=== PATIENT | female | born 1945 | race Caucasian/White ===

== ENCOUNTER 2017-01-10 09:34 | Emergency (ER) | payer MEDICARE, MEDICAID ==
[~2017-01-10] VITALS: Ht 167.6 cm; Wt 86.0 kg
[~2017-01-10 09:34] MED LIST: AZIT250T74 PO; PRED20 PO; WELL200T PO
[2017-01-10 09:41] VITALS: BP 145/87; PULSE 90; RESP 18; TEMP 97.9; O2SAT 94
[2017-01-10] MEDS ORDERED: NEBUMIS6 (09:53)
[2017-01-10] MEDS ORDERED: BRIO (09:53)
--- NOTE | 2017-01-10 10:08 | PD ---
HPI Chief Complaint: Edema Time Seen by Provider: 09:50 Travel History International Travel<30 days: No Contact w/Intl Traveler<30days: No Traveled to known affect area: No History of Present Illness HPI This patient complains of swelling in her feet and legs. Duration 3 weeks. Severity is moderate. She also complains of one week of aching in her left arm between shoulder and elbow. No injury. No fever. She has chronic severe COPD and has oxygen at home and still smokes. She denies history of cardiac disease. Left arm pain is reproduced and exacerbated when she raises her arm overhead. It's located primarily in the left shoulder. No alleviating factors. PFSH Past Medical History Depression: Yes Cancer: No Cardiovascular Problems: No COPD: Yes Cerebrovascular Accident: No Diminished Hearing: No Endocrine: No Genitourinary: No Immune Disorder: No Musculoskeletal: Yes Psychiatric: Yes Reproductive: No Menopausal: Yes Past Surgical History Tonsillectomy: Yes Social History Alcohol Use: No Tobacco Use: Yes (1/2-1PPD) Substance Use: No Allergies-Medications (Allergen,Severity, Reaction): Coded Allergies: penicillin G (Unverified Allergy, Mild, 01/10/17) Reported Meds & Prescriptions Reported Meds & Active Scripts Active Reported [Brio] [Nebulizer] Review of Systems General / Constitutional: No: Fever Eyes: No: Visual changes HENT: No: Headaches Cardiovascular: Positive: Edema, No: Chest Pain or Discomfort Respiratory: No: Shortness of Breath Gastrointestinal: No: Abdominal Pain Genitourinary: No: Dysuria Musculoskeletal: Positive: Arthralgias, Edema, Pain Skin: No Rash Neurologic: No: Weakness Psychiatric: No: Depression Endocrine: No: Polydipsia Hematologic/Lymphatic: No: Easy Bruising Physical Exam Narrative GENERAL: Well-nourished, well-developed patient in no apparent distress. SKIN: Focused skin assessment reveals no rash and nodules. Skin is Warm and dry. HEAD: Atraumatic. Normocephalic. EYES: Pupils equal and round. No scleral icterus. No injection or drainage. ENT: No nasal bleeding or discharge. Mucous membranes pink and moist. NECK: Trachea midline. No JVD. CARDIOVASCULAR: Regular rate and rhythm. No murmur appreciated. RESPIRATORY: No accessory muscle use. Faint expiratory wheeze. Breath sounds equal bilaterally. No crackles GASTROINTESTINAL: Abdomen soft, non-tender, nondistended. Hepatic and splenic margins not palpable. MUSCULOSKELETAL: No obvious deformities. No clubbing. No cyanosis. Symmetric mildly pitting edema of the feet and lower legs to the midshin . NEUROLOGICAL: Awake and alert. No obvious cranial nerve deficits. Motor grossly within normal limits. Normal speech. PSYCHIATRIC: Appropriate mood and affect; insight and judgment seems a bit weak . Data Data Last Documented VS Vital Signs Date Time Temp Pulse Resp B/P (MAP) Pulse Ox O2 Delivery O2 Flow Rate FiO2 01/10/17 11:33 76 20 134/86 (102) 93 Nasal Cannula 2.00 01/10/17 09:41 97.9 Orders Orders Electrocardiogram (01/10/17 10:03) Ckmb (Isoenzyme) Profile (01/10/17 10:03) Complete Blood Count With Diff (01/10/17 10:03) Comprehensive Metabolic Panel (01/10/17 10:03) Troponin I (01/10/17 10:03) Ecg Monitoring (01/10/17 10:03) Iv Access Insert/Monitor (01/10/17 10:03) Oximetry (01/10/17 10:03) Sodium Chloride 0.9% Flush (Ns Flush) (01/10/17 10:15) Chest, Single Ap (01/10/17 ) Prothrombin Time / Inr (Pt) (01/10/17 10:08) Act Partial Throm Time (Ptt) (01/10/17 10:08) Labs Laboratory Tests Test 01/10/17 10:10 White Blood Count 6.1 TH/MM3 Red Blood Count 5.44 MIL/MM3 Hemoglobin 16.1 GM/DL Hematocrit 50.3 % Mean Corpuscular Volume 92.4 FL Mean Corpuscular Hemoglobin 29.7 PG Mean Corpuscular Hemoglobin Concent 32.1 % Red Cell Distribution Width 14.0 % Platelet Count 139 TH/MM3 Mean Platelet Volume 8.8 FL Neutrophils (%) (Auto) 76.1 % Lymphocytes (%) (Auto) 12.9 % Monocytes (%) (Auto) 7.7 % Eosinophils (%) (Auto) 2.8 % Basophils (%) (Auto) 0.5 % Neutrophils # (Auto) 4.6 TH/MM3 Lymphocytes # (Auto) 0.8 TH/MM3 Monocytes # (Auto) 0.5 TH/MM3 Eosinophils # (Auto) 0.2 TH/MM3 Basophils # (Auto) 0.0 TH/MM3 CBC Comment DIFF FINAL Differential Comment Prothrombin Time 10.4 SEC Prothromb Time International Ratio 0.9 RATIO Activated Partial Thromboplast Time 27.4 SEC Blood Urea Nitrogen 8 MG/DL Creatinine 0.75 MG/DL Random Glucose 93 MG/DL Total Protein 6.7 GM/DL Albumin 3.3 GM/DL Calcium Level 8.5 MG/DL Alkaline Phosphatase 108 U/L Aspartate Amino Transf (AST/SGOT) 14 U/L Alanine Aminotransferase (ALT/SGPT) 14 U/L Total Bilirubin 0.5 MG/DL Sodium Level 140 MEQ/L Potassium Level 3.9 MEQ/L Chloride Level 104 MEQ/L Carbon Dioxide Level 28.9 MEQ/L Anion Gap 7 MEQ/L Estimat Glomerular Filtration Rate 77 ML/MIN Total Creatine Kinase 89 U/L Troponin I LESS THAN 0.02 NG/ML MDM Medical Decision Making Medical Screen Exam Complete: Yes Emergency Medical Condition: Yes Medical Record Reviewed: Yes Differential Diagnosis CHF, renal failure, liver failure, ACS Narrative Course I have reviewed the patient's electronic medical record. IV placed I reviewed the EKG which is normal Extended cardiac monitoring shows sinus rhythm without ectopy CBC is normal Metabolic profile is normal CK is normal Troponin is normal I reviewed the chest x-ray which is normal Patient's workup is entirely normal. She does have some mild symmetric bilateral leg swelling for 3 weeks. I recommend she elevate her legs and use low-sodium diet and wear knee-high compression stockings and follow up with her physician. I have Ruled out heart failure and renal failure and liver failure. I recommended she quit smoking She has COPD and uses oxygen Her left shoulder pain is clearly musculoskeletal. It's readily reproducible with movements of her left shoulder. It does not represent an ACS variant Diagnosis Primary Impression: Leg edema Additional Impression: Left shoulder pain Qualified Codes: M25.512 - Pain in left shoulder Additional Instructions: The patient was advised to follow up with their physician and return if they worsen. Elevate legs Use low-sodium diet Wear knee-high compression stockings Med/Other Pt SpecificInfo: Other Disposition: 01 DISCHARGE HOME Condition: Stable Remigio Hurst MD Jan 10, 2017 10:08
[2017-01-10 10:14] VITALS: O2SAT 95
[2017-01-10 10:15] LABS: AUTOMATED NEUTROPHIL # 4.6 TH/MM3 (1.8-7.7); BASOPHIL % 0.5 % (0.0-2.0); EOSINOPHIL # 0.2 TH/MM3 (0-0.4); EOSINOPHIL % 2.8 % (0.0-4.0); HEMATOCRIT 50.3 % (35.0-46.0); HEMO FLAGS DIFF FINAL; LYMPH % 12.9 % (9.0-44.0); LYMPHOCYTE # 0.8 TH/MM3 (1.0-4.8); MEAN CELL VOLUME 92.4 FL (80.0-100.0); MEAN CORPUSCULAR HEMOGLOBIN 29.7 PG (27.0-34.0); MEAN CORPUSCULAR HGB CONC 32.1 % (32.0-36.0); MONO % 7.7 % (0.0-8.0); NEUT % 76.1 % (16.0-70.0); PLATELET COUNT 139 TH/MM3 (150-450); RED BLOOD COUNT 5.44 MIL/MM3 (4.00-5.30); WHITE BLOOD COUNT 6.1 TH/MM3 (4.0-11.0)
[2017-01-10] MEDS ORDERED: SODIUM CHLORIDE 0.9% FLUSH 10 ML FLUSH IVF PRN (10:15)
[2017-01-10 10:24] LABS: CHLORIDE 104 MEQ/L (98-107); POTASSIUM 3.9 MEQ/L (3.5-5.1); SODIUM (NA) 140 MEQ/L (136-145)
[2017-01-10 10:28] LABS: ANION GAP 7 MEQ/L (5-15); BICARBONATE 28.9 MEQ/L (21.0-32.0); BLOOD UREA NITROGEN 8 MG/DL (7-18)
[2017-01-10 10:31] VITALS: BP 134/60; PULSE 81; RESP 20; O2SAT 94
[2017-01-10 10:31] LABS: ALT (GPT) 14 U/L (10-53); AST (GOT) 14 U/L (15-37); GLOMERULAR FILTRATION RATE 77 ML/MIN (>89)
[2017-01-10 10:32] LABS: TOTAL BILIRUBIN ADULT 0.5 MG/DL (0.2-1.0)
[2017-01-10 10:34] LABS: ALKALINE PHOSPHATASE 108 U/L (45-117); CREATINE KINASE 89 U/L (26-192)
[2017-01-10 10:39] LABS: APTT (PATIENT) 27.4 SEC (24.3-30.1); INTERNATIONAL NORMALIZED RATIO 0.9 RATIO; PROTHROMBIN TIME - PATIENT 10.4 SEC (9.8-11.6)
--- NOTE | 2017-01-10 10:57 | RADRPT ---
EXAM DATE/TIME: 01/10/2017 10:37 [facility] COMPARISON: No previous studies available for comparison. INDICATIONS : Short of breath, bilateral lower extremity swelling. MEDICAL HISTORY : Chronic obstructive pulmonary disease. SURGICAL HISTORY : None. ENCOUNTER: Initial ACUITY: 2 weeks PAIN SCORE: 0/10 LOCATION: Bilateral chest FINDINGS: A single view of the chest demonstrates the lungs to be symmetrically aerated without evidence of mas s, infiltrate or effusion. The cardiomediastinal contours are unremarkable. Osseous structures are intact. CONCLUSION: No acute disease. Adrian Chambers MD on January 10, 2017 at 10:55 Board Certified Radiologist. This report was verified electronically.
[2017-01-10 11:33] VITALS: BP 134/86; PULSE 76; RESP 20; O2SAT 93
--- NOTE | 2017-01-10 14:07 | EKG ---
Date Performed: 01/10/2017 Time Performed: 11:00:45 PTAGE: 71 years EKG: Sinus rhythm NORMAL ECG Compared to prior tracing no significant change PREVIOUS TRACING : 10/20/2015 18.19 DOCTOR: Geraldo Kumar Interpretating Date/Time 01/10/2017 14:05:51
== END 2017-01-10 12:03 | disposition home or self-care (01) ==
LOC: PHED 09:34
DX: R60.0 Localized edema (principal); M25.512 Pain in left shoulder; J44.9 Chronic obstructive pulmonary disease, unspecified; F17.210 Nicotine dependence, cigarettes, uncomplicated; Z99.81 Dependence on supplemental oxygen; Z88.0 Allergy status to penicillin
CPT/HCPCS: 71010; 80053; 82550; 84484; 85025; 85610; 85730; 93005; 99285

== ENCOUNTER → 2017-08-22 | Outpatient (CLI) | payer MEDICARE, MEDICAID ==
[~2017-08-22] MED LIST changes: -AZIT250T74 PO; +BRIO; +NEBUMIS6; -PRED20 PO; -WELL200T PO
[2017-08-22 12:33] LABS: HEMATOCRIT 54.5 % (35.0-46.0); HEMOGLOBIN 18.2 GM/DL (11.6-15.3); MEAN CORPUSCULAR HEMOGLOBIN 31.4 PG (27.0-34.0); MEAN CORPUSCULAR HGB CONC 33.4 % (32.0-36.0); MEAN PLATELET VOLUME 9.5 FL (7.0-11.0); PLATELET COUNT 188 TH/MM3 (150-450); RED CELL DISTRIBUTION WIDTH 14.4 % (11.6-17.2); WHITE BLOOD COUNT 8.6 TH/MM3 (4.0-11.0)
[2017-08-22 12:55] LABS: ALBUMIN 3.5 GM/DL (3.4-5.0); AST (GOT) 29 U/L (15-37); BICARBONATE 28.8 MEQ/L (21.0-32.0); BLOOD UREA NITROGEN 5 MG/DL (7-18); CALCIUM 9.1 MG/DL (8.5-10.1); CHLORIDE 103 MEQ/L (98-107); CHOLESTEROL 172 MG/DL (120-200); CREATININE 0.75 MG/DL (0.50-1.00); GLOMERULAR FILTRATION RATE 76 ML/MIN (>89); GLUCOSE,FASTING 96 MG/DL (74-99); SODIUM (NA) 140 MEQ/L (136-145); TRIGLYCERIDES 176 MG/DL (42-150)
[2017-08-22 13:06] LABS: ALKALINE PHOSPHATASE 134 U/L (45-117); ALT (GPT) 17 U/L (10-53); CHOLESTEROL/ HDL RATIO 4.21 RATIO; HDL CHOLESTEROL 40.8 MG/DL (40.0-60.0); LDL CHOLESTEROL 96 MG/DL (0-99); TOTAL BILIRUBIN ADULT 0.5 MG/DL (0.2-1.0); TOTAL PROTEIN 7.4 GM/DL (6.4-8.2)
--- NOTE | 2017-08-22 14:46 | RADRPT ---
EXAM DATE/TIME: 08/22/2017 13:57 [facility] COMPARISON: CHEST SINGLE AP, January 10, 2017, 10:37. INDICATIONS : COPD, cough. RADIATION DOSE: 11.73 CTDIvol (mGy) MEDICAL HISTORY : Chronic obstructive pulmonary disease. SURGICAL HISTORY : None. ENCOUNTER: Initial ACUITY: 1 week PAIN SCALE: 0/10 LOCATION: cranial TECHNIQUE: Volumetric scanning of the chest was performed. Using automated exposure control and adjustment of t he mA and/or kV according to patient size, radiation dose was kept as low as reasonably achievable to obtain optimal diagnostic quality images. DICOM format image data is available electronically for r eview and comparison. Follow-up recommendations for detected pulmonary nodules are based at a minimum on nodule size and pa tient risk factors according to Fleischner Society Guidelines. FINDINGS: LUNGS: There is a small area of opacity in the central left upper lung with mild interstitial opacities whic h may represent an early or developing infiltrate. There is also mild bronchiectasis in the left mid lung. The right lung is clear. PLEURAE: There is no pleural thickening or pleural effusion. MEDIASTINUM: The heart and great vessels demonstrate no acute abnormality. There is no mediastinal or hilar lymph adenopathy. There is mild thickening of the anterior pericardium measuring up to 7 mm. AXILLAE: Within normal limits. No lymphadenopathy. MUSCULOSKELETAL: Within normal limits for patient age. MISCELLANEOUS: Both adrenal glands are normal in appearance. Calcified gallstone. CONCLUSION: 1. Small interstitial, the central left upper lung may represent a developing infiltrate. 2. Mild bronchiectasis in the left midlung. 3. Possible pericardial effusion. Nabil Pugh MD on August 22, 2017 at 14:38 Board Certified Radiologist. This report was verified electronically.
== END ==
LOC: HRSP 11:39
PROVIDERS: ATTEND Internal Medicine Pulmonary Disease
DX: J44.9 Chronic obstructive pulmonary disease, unspecified (principal); R05 Cough; E03.9 Hypothyroidism, unspecified; R06.00 Dyspnea, unspecified; R25.1 Tremor, unspecified
CPT/HCPCS: 36415; 71250; 80053; 80061; 84443; 85027; 94060; 94726; 94729

== ENCOUNTER 2017-09-26 13:40 | Inpatient (IN) | payer MEDICARE, MEDICAID ==
[~2017-09-26] VITALS: Ht 165.1 cm; Wt 78.8 kg
[2017-09-26] VITALS (10 sets, daily range): BP systolic 145–182; BP diastolic 68–106; PULSE 78–94; RESP 22–40; TEMP 97.2–98.6; O2SAT 93–99
[2017-09-26] MEDS ORDERED: METOCLOPRAMIDE HCL 10 MG/2 ML VIAL IV PUSH ONE (14:00)
[2017-09-26] MEDS: RESP: ALBUTEROL 2.5 MG/IPRATROPIUM 0.5 MG NEB (SCH) INH (14:14)
[2017-09-26 14:27] LABS: AUTOMATED NEUTROPHIL # 8.2 TH/MM3 (1.8-7.7); BASOPHIL # 0.1 TH/MM3 (0-0.2); BASOPHIL % 0.6 % (0.0-2.0); EOSINOPHIL % 0.4 % (0.0-4.0); HEMATOCRIT 50.5 % (35.0-46.0); HEMOGLOBIN 16.5 GM/DL (11.6-15.3); LYMPH % 9.5 % (9.0-44.0); MEAN CORPUSCULAR HGB CONC 32.6 % (32.0-36.0); MEAN PLATELET VOLUME 9.7 FL (7.0-11.0); MONO % 7.8 % (0.0-8.0); MONOCYTE # 0.8 TH/MM3 (0-0.9); NEUT % 81.7 % (16.0-70.0); PLATELET COUNT 168 TH/MM3 (150-450); RED BLOOD COUNT 5.32 MIL/MM3 (4.00-5.30); RED CELL DISTRIBUTION WIDTH 14.6 % (11.6-17.2); WHITE BLOOD COUNT 10.1 TH/MM3 (4.0-11.0)
[2017-09-26 14:41] LABS: INTERNATIONAL NORMALIZED RATIO 1.1 RATIO; PROTHROMBIN TIME - PATIENT 10.9 SEC (9.8-11.6)
[2017-09-26 14:50] LABS: ALBUMIN 3.5 GM/DL (3.4-5.0); AST (GOT) 12 U/L (15-37); BICARBONATE 40.4 MEQ/L (21.0-32.0); BLOOD UREA NITROGEN 11 MG/DL (7-18); CALCIUM 9.1 MG/DL (8.5-10.1); CHLORIDE 94 MEQ/L (98-107); CREATININE 0.75 MG/DL (0.50-1.00); GLOMERULAR FILTRATION RATE 76 ML/MIN (>89); GLUCOSE,RANDOM 104 MG/DL (74-106); MAGNESIUM 2.1 MG/DL (1.5-2.5); SODIUM (NA) 142 MEQ/L (136-145)
[2017-09-26 14:55] LABS: ALKALINE PHOSPHATASE 110 U/L (45-117); ALT (GPT) 14 U/L (10-53); PHOSPHORUS 2.4 MG/DL (2.5-4.9); TOTAL PROTEIN 7.1 GM/DL (6.4-8.2); TROPONIN I LESS THAN 0.02 NG/ML (0.02-0.05)
--- NOTE | 2017-09-26 15:01 | PD ---
HPI Chief Complaint: Respiratory Symptoms Time Seen by Provider: 13:56 Travel History International Travel<30 days: No Contact w/Intl Traveler<30days: No Traveled to known affect area: No History of Present Illness HPI Patient is a 72-year-old female with history of COPD, currently on 3 L nasal cannula at all times, presents the emergency room with complaints of shortness of breath. Patient reports that for the past 4 days, she has been feeling short of breath at rest as well as on exertion. Patient reports that she has been using her nasal cannula, reports that she has giving herself albuterol treatments with no relief of symptoms. Reports that she has had a productive cough with no fever/chills. Patient admits that she is still a smoker. EMS reports that patients pulse ox was 70% on room air upon their initial evaluation. They did administer 125 mg of Solu-Medrol as well as neb treatment prior to arrival to emergency room. PFSH Past Medical History Depression: Yes Cardiovascular Problems: No Congestive Heart Failure: Yes COPD: Yes Cerebrovascular Accident: No Diminished Hearing: No Genitourinary: No Hypertension: Yes Immune Disorder: No Musculoskeletal: Yes Psychiatric: Yes Reproductive: No ?: Not Menopausal: Yes Past Surgical History Tonsillectomy: Yes Social History Alcohol Use: No Tobacco Use: Yes (1/2-1PPD) Substance Use: No Allergies-Medications (Allergen,Severity, Reaction): Coded Allergies: penicillin G (Verified Allergy, Mild, 09/26/17) Reported Meds & Prescriptions Reported Meds & Active Scripts Active Reported Triamterene-Hydrochlorothiazide 37.5-25 Mg Tab 1 Tab PO DAILY Proair Hfa 8.5 GM Inh (Albuterol Sulfate) 90 Mcg/Act Aer 2 Puff INH Q6H PRN 108 mcg/actuation Duoneb (Ipratropium-Albuterol Neb) 0.5-2.5 Mg/3 Ml Neb 3 Ml NEB QID Anoro Ellipta Inh (Umeclidinium/Vilanterol) 62.5-25 Mcg/Act Aero 1 Puff INH DAILY Review of Systems General / Constitutional: No: Fever Eyes: No: Visual changes HENT: No: Headaches Cardiovascular: No: Chest Pain or Discomfort Respiratory: Positive: Cough, Shortness of Breath, Wheezing Gastrointestinal: No: Abdominal Pain Genitourinary: No: Dysuria Musculoskeletal: No: Pain Skin: No Rash Neurologic: No: Weakness Psychiatric: No: Depression Endocrine: No: Polydipsia Hematologic/Lymphatic: No: Easy Bruising Physical Exam Narrative GENERAL: moderate distress SKIN: Focused skin assessment warm/dry. HEAD: Atraumatic. Normocephalic. EYES: Pupils equal and round. No scleral icterus. No injection or drainage. ENT: No nasal bleeding or discharge. Mucous membranes pink and moist. NECK: Trachea midline. No JVD. CARDIOVASCULAR: tachycardia. No murmur appreciated. RESPIRATORY: positive accessory muscle use. scattered wheezing. Breath sounds equal bilaterally. GASTROINTESTINAL: Abdomen soft, non-tender, nondistended. Hepatic and splenic margins not palpable. MUSCULOSKELETAL: No obvious deformities. No clubbing. No cyanosis. No edema. NEUROLOGICAL: Awake and alert. No obvious cranial nerve deficits. Motor grossly within normal limits. Normal speech. PSYCHIATRIC: Appropriate mood and affect; insight and judgment normal. Data Data Last Documented VS Vital Signs Date Time Temp Pulse Resp B/P (MAP) Pulse Ox O2 Delivery O2 Flow Rate FiO2 09/26/17 16:44 90 24 145/68 (93) 95 CPAP 40 09/26/17 13:58 98.3 Orders Orders Sepsis Workup Initiated (09/26/17 ) Complete Blood Count With Diff (09/26/17 13:56) Comprehensive Metabolic Panel (09/26/17 13:56) Prothrombin Time / Inr (Pt) (09/26/17 13:56) Act Partial Throm Time (Ptt) (09/26/17 13:56) Lactic Acid Sepsis Protocol (09/26/17 13:56) Magnesium (Mg) (09/26/17 13:56) Phosphorus (Po4) (09/26/17 13:56) Lipase (09/26/17 13:56) Ckmb (Isoenzyme) Profile (09/26/17 13:56) Troponin I (09/26/17 13:56) Urinalysis - C+S If Indicated (09/26/17 13:56) Blood Culture (09/26/17 13:56) Chest, Single Ap (09/26/17 13:56) Arterial Blood Gas (Abg) (09/26/17 13:56) Blood Glucose (09/26/17 13:56) Ecg Monitoring (09/26/17 13:56) Iv Access Insert/Monitor (09/26/17 13:56) Oximetry (09/26/17 13:56) Oxygen Administration (09/26/17 13:56) Albuterol-Ipratropium Neb (Duoneb Neb) (09/26/17 14:00) Metoclopramide Inj (Reglan Inj) (09/26/17 14:00) Levofloxacin 750 Mg Premix Inj (Levaquin (09/26/17 16:45) Labs Laboratory Tests Test 09/26/17 14:00 09/26/17 14:10 White Blood Count 10.1 TH/MM3 Red Blood Count 5.32 MIL/MM3 Hemoglobin 16.5 GM/DL Hematocrit 50.5 % Mean Corpuscular Volume 95.0 FL Mean Corpuscular Hemoglobin 31.0 PG Mean Corpuscular Hemoglobin Concent 32.6 % Red Cell Distribution Width 14.6 % Platelet Count 168 TH/MM3 Mean Platelet Volume 9.7 FL Neutrophils (%) (Auto) 81.7 % Lymphocytes (%) (Auto) 9.5 % Monocytes (%) (Auto) 7.8 % Eosinophils (%) (Auto) 0.4 % Basophils (%) (Auto) 0.6 % Neutrophils # (Auto) 8.2 TH/MM3 Lymphocytes # (Auto) 1.0 TH/MM3 Monocytes # (Auto) 0.8 TH/MM3 Eosinophils # (Auto) 0.0 TH/MM3 Basophils # (Auto) 0.1 TH/MM3 CBC Comment DIFF FINAL Differential Comment Prothrombin Time 10.9 SEC Prothromb Time International Ratio 1.1 RATIO Activated Partial Thromboplast Time 24.3 SEC Blood Urea Nitrogen 11 MG/DL Creatinine 0.75 MG/DL Random Glucose 104 MG/DL Total Protein 7.1 GM/DL Albumin 3.5 GM/DL Calcium Level 9.1 MG/DL Phosphorus Level 2.4 MG/DL Magnesium Level 2.1 MG/DL Alkaline Phosphatase 110 U/L Aspartate Amino Transf (AST/SGOT) 12 U/L Alanine Aminotransferase (ALT/SGPT) 14 U/L Total Bilirubin 1.0 MG/DL Sodium Level 142 MEQ/L Potassium Level 3.3 MEQ/L Chloride Level 94 MEQ/L Carbon Dioxide Level 40.4 MEQ/L Anion Gap 8 MEQ/L Estimat Glomerular Filtration Rate 76 ML/MIN Lactic Acid Level 1.6 mmol/L Total Creatine Kinase 44 U/L Troponin I LESS THAN 0.02 NG/ML Lipase 130 U/L Blood Gas Puncture Site RT RADIAL Blood Gas Patient Temperature 98.6 Blood Gas HCO3 42 mmol/L Blood Gas Base Excess 15.8 mmol/L Blood Gas Oxygen Saturation 94 % Arterial Blood pH 7.36 Arterial Blood Partial Pressure CO2 76 mmHg Arterial Blood Partial Pressure O2 82 mmHG Arterial Blood Oxygen Content 21.9 Vol % Arterial Blood Carboxyhemoglobin 2.2 % Arterial Blood Methemoglobin 0.7 % Blood Gas Hemoglobin 16.5 G/DL Oxygen Delivery Device BiPAP Blood Gas Ventilator Setting 01/26 Blood Gas Inspired Oxygen 40 % [facility] Medical Decision Making Medical Screen Exam Complete: Yes Emergency Medical Condition: Yes Medical Record Reviewed: Yes Interpretation(s) EKG at 1451: NSR at 93bpm, qt/qtc: 341/392, no acute st or t wave changes Vital Signs Date Time Temp Pulse Resp B/P (MAP) Pulse Ox O2 Delivery O2 Flow Rate FiO2 09/26/17 14:26 93 40 09/26/17 14:23 94 BiPAP 09/26/17 14:23 94 BiPAP 40 09/26/17 13:58 98.3 89 28 182/106 (131) 97 CPAP 40 09/26/17 13:54 97 BiPAP 40 09/26/17 13:48 98.6 94 40 182/106 (131) 97 Differential Diagnosis COPD exacerbation, pneumonia, PE, ACS, arrhythmia, electrolyte abnormality Narrative Course During the course of the patients emergency department visit, the patients history, examination, and differential diagnosis were reviewed with the patient. The patient was placed on a environmental monitoring technician with oximetry and frequent blood pressure monitoring. The patient had an IV access obtained and blood work sent for analysis. The patient was initially provided IV Solu-Medrol as well as a neb treatment by EMS. Patient was placed on BiPAP in the emergency room, 3 DuoNeb's are ordered. The patients laboratory studies were reviewed and remarkable for Laboratory Tests Test 09/26/17 14:00 09/26/17 14:10 White Blood Count 10.1 TH/MM3 (4.0-11.0) Red Blood Count 5.32 MIL/MM3 (4.00-5.30) Hemoglobin 16.5 GM/DL (11.6-15.3) Hematocrit 50.5 % (35.0-46.0) Mean Corpuscular Volume 95.0 FL (80.0-100.0) Mean Corpuscular Hemoglobin 31.0 PG (27.0-34.0) Mean Corpuscular Hemoglobin Concent 32.6 % (32.0-36.0) Red Cell Distribution Width 14.6 % (11.6-17.2) Platelet Count 168 TH/MM3 (150-450) Mean Platelet Volume 9.7 FL (7.0-11.0) Neutrophils (%) (Auto) 81.7 % (16.0-70.0) Lymphocytes (%) (Auto) 9.5 % (9.0-44.0) Monocytes (%) (Auto) 7.8 % (0.0-8.0) Eosinophils (%) (Auto) 0.4 % (0.0-4.0) Basophils (%) (Auto) 0.6 % (0.0-2.0) Neutrophils # (Auto) 8.2 TH/MM3 (1.8-7.7) Lymphocytes # (Auto) 1.0 TH/MM3 (1.0-4.8) Monocytes # (Auto) 0.8 TH/MM3 (0-0.9) Eosinophils # (Auto) 0.0 TH/MM3 (0-0.4) Basophils # (Auto) 0.1 TH/MM3 (0-0.2) CBC Comment DIFF FINAL Differential Comment Prothrombin Time 10.9 SEC (9.8-11.6) Prothromb Time International Ratio 1.1 RATIO Activated Partial Thromboplast Time 24.3 SEC (24.3-30.1) Blood Urea Nitrogen 11 MG/DL (7-18) Creatinine 0.75 MG/DL (0.50-1.00) Random Glucose 104 MG/DL (74-106) Total Protein 7.1 GM/DL (6.4-8.2) Albumin 3.5 GM/DL (3.4-5.0) Calcium Level 9.1 MG/DL (8.5-10.1) Phosphorus Level 2.4 MG/DL (2.5-4.9) Magnesium Level 2.1 MG/DL (1.5-2.5) Alkaline Phosphatase 110 U/L (45-117) Aspartate Amino Transf (AST/SGOT) 12 U/L (15-37) Alanine Aminotransferase (ALT/SGPT) 14 U/L (10-53) Total Bilirubin 1.0 MG/DL (0.2-1.0) Sodium Level 142 MEQ/L (136-145) Potassium Level 3.3 MEQ/L (3.5-5.1) Chloride Level 94 MEQ/L (98-107) Carbon Dioxide Level 40.4 MEQ/L (21.0-32.0) Anion Gap 8 MEQ/L (5-15) Estimat Glomerular Filtration Rate 76 ML/MIN (>89) Lactic Acid Level 1.6 mmol/L (0.4-2.0) Total Creatine Kinase 44 U/L (26-192) Troponin I LESS THAN 0.02 NG/ML Lipase 130 U/L (73-393) Blood Gas Puncture Site RT RADIAL Blood Gas Patient Temperature 98.6 Blood Gas HCO3 42 mmol/L (22-26) Blood Gas Base Excess 15.8 mmol/L (-2-2) Blood Gas Oxygen Saturation 94 % (90-100) Arterial Blood pH 7.36 (7.380-7.420) Arterial Blood Partial Pressure CO2 76 mmHg (38-42) Arterial Blood Partial Pressure O2 82 mmHG (61-120) Arterial Blood Oxygen Content 21.9 Vol % (12.0-20.0) Arterial Blood Carboxyhemoglobin 2.2 % (0-4) Arterial Blood Methemoglobin 0.7 % (0-2) Blood Gas Hemoglobin 16.5 G/DL (12.0-16.0) Oxygen Delivery Device BiPAP Blood Gas Ventilator Setting 10/5 Blood Gas Inspired Oxygen 40 % Radiology studies were reviewed and remarkable for Last Impressions Chest X-Ray 09/26/17 1356 Signed Impressions: CONCLUSION: Negative examination. Patient feeling much better on bipap, plan to admit for copd exacerbation. case reviewed with Dr. Jose who accepts pt to service Diagnosis Primary Impression: COPD (chronic obstructive pulmonary disease) Additional Impression: Hypoxia Admitting Information Admitting Physician Requests: Aisha Oneill DO Sep 26, 2017 15:01
--- NOTE | 2017-09-26 15:58 | RADRPT ---
EXAM DATE: 09/26/2017 3:45 PM EDT AGE/SEX: 72 years / Female INDICATIONS: Always short of breath but breathing was much more difficult today CLINICAL DATA: This is the patient's initial encounter. Patient reports that signs and symptoms have been present for 1 day and indicates a pain score of 4/10. MEDICAL/SURGICAL HISTORY: Chronic obstructive pulmonary disease. None. COMPARISON: [facility], CHEST SINGLE AP, 01/10/2017. . FINDINGS: A single AP view of the chest demonstrates the lungs to be symmetrically aerated without evidence of mass, infiltrate or effusion. The cardiomediastinal contours are unremarkable. Osseous structures a re intact. CONCLUSION: Negative examination. Electronically signed by: Maximino Beck MD 09/26/2017 3:56 PM EDT
[2017-09-26] MEDS ORDERED: ALBUAER3 INH (16:26)
[2017-09-26] MEDS ORDERED: UMEC1AER INH (16:26)
[2017-09-26] MEDS ORDERED: TRIA37.5 PO (16:26)
[2017-09-26] MEDS ORDERED: IPRASOL NEB (16:26)
[2017-09-26] MEDS ORDERED: LEVOFLOXACIN 750 MG PREMIX INJ 150 ML IV ONE (16:45)
[2017-09-26] MEDS ORDERED: POTASSIUM CHLORIDE 20 MEQ CONTROLLED RELEASE TAB PO ONE (18:00)
[2017-09-26] MEDS ORDERED: NALOXONE HCL 0.4 MG/ML AMP IV PUSH PRN (19:00)
[2017-09-26] MEDS ORDERED: ACETAMINOPHEN 325 MG TAB PO PRN ×2 (19:00)
[2017-09-26] MEDS ORDERED: SODIUM CHLORIDE 0.9% FLUSH 10 ML FLUSH IV FLUSH PRN (19:00)
[2017-09-26] MEDS: RESP: ALBUTEROL 2.5 MG/IPRATROPIUM 0.5 MG NEB (PRN) NEB (20:25)
--- NOTE | 2017-09-26 20:52 | HHI.HP ---
[facility] Physician Jona Becerra D.O. Admission Diagnosis COPD exacerbation with hypoxia Diagnoses: Travel History International Travel<30 Days: No Contact w/Intl Traveler <30 Da: No Traveled to Known Affected Are: No History of Present Illness 72-year-old female with a past medical history significant for COPD currently on 3 L nasal cannula at home, hypertension, depression, tremors and migraine headaches presents to the emergency department for the evaluation of shortness of breath. The patient reports that for the past 4 days she has been feeling increasing worsening shortness of breath at rest as well as with exertion. She reports that despite compliance with her nasal cannula and albuterol of the laser treatments she has had no relief. She has a productive cough without fever or chills. Per EMS report the patient's pulse ox was 70% on room air upon their initial evaluation. She denies any chest pain. No abdominal pain. No nausea/vomiting/diarrhea. No lateralizing signs/symptoms. Review of Systems Except as stated in HPI: all other systems reviewed are Neg Past Family Social History Past Medical History COPD, depression, tremors and migraine headaches Past Surgical History Tonsillectomy, bilateral foot surgery Reported Medications Reported Meds & Active Scripts Active Reported Triamterene-Hydrochlorothiazide 37.5-25 Mg Tab 1 Tab PO DAILY Proair Hfa 8.5 GM Inh (Albuterol Sulfate) 90 Mcg/Act Aer 2 Puff INH Q6H PRN 108 mcg/actuation Duoneb (Ipratropium-Albuterol Neb) 0.5-2.5 Mg/3 Ml Neb 3 Ml NEB QID Anoro Ellipta Inh (Umeclidinium/Vilanterol) 62.5-25 Mcg/Act Aero 1 Puff INH DAILY Allergies: Coded Allergies: penicillin G (Verified Allergy, Mild, 09/26/17) Family History Patient does not know mother's medical history father at 96 of old age Social History Positive tobacco. Denies alcohol and illicit drugs Physical Exam Vital Signs Vital Signs Date Time Temp Pulse Resp B/P (MAP) Pulse Ox O2 Delivery O2 Flow Rate FiO2 09/26/17 20:33 99 40 09/26/17 19:20 78 24 154/86 (108) 98 BiPAP 09/26/17 18:27 81 24 167/80 (109) 98 BiPAP 40 09/26/17 16:44 90 24 145/68 (93) 95 CPAP 40 09/26/17 14:26 93 40 09/26/17 14:23 94 BiPAP 09/26/17 14:23 94 BiPAP 40 09/26/17 13:58 98.3 89 28 182/106 (131) 97 CPAP 40 09/26/17 13:54 97 BiPAP 40 09/26/17 13:48 98.6 94 40 182/106 (131) 97 Physical Exam GENERAL: female sitting up in bed, on BiPAP SKIN: No rashes, ecchymoses or lesions. Cool and dry. HEAD: Atraumatic. Normocephalic. No temporal or scalp tenderness. EYES: Pupils equal round and reactive. Extraocular motions intact. No scleral icterus. No injection or drainage. ENT: Nose without bleeding, purulent drainage or septal hematoma. Throat without erythema, tonsillar hypertrophy or exudate. Uvula midline. Airway patent. NECK: Trachea midline. No JVD or lymphadenopathy. Supple, nontender, no meningeal signs. CARDIOVASCULAR: Regular rate and rhythm without murmurs, gallops, or rubs. RESPIRATORY: Bilateral wheezes throughout. Poor air movement. GASTROINTESTINAL: Abdomen soft, non-tender, nondistended. No hepato-splenomegaly , or palpable masses. No guarding. MUSCULOSKELETAL: Extremities without clubbing, cyanosis, or edema. No joint tenderness, effusion, or edema noted. No calf tenderness. NEUROLOGICAL: Awake and alert. Cranial nerves II through XII intact. Motor and sensory grossly within normal limits. Normal speech. Laboratory Laboratory Tests Test 09/26/17 14:00 09/26/17 14:10 White Blood Count 10.1 Red Blood Count 5.32 Hemoglobin 16.5 Hematocrit 50.5 Mean Corpuscular Volume 95.0 Mean Corpuscular Hemoglobin 31.0 Mean Corpuscular Hemoglobin Concent 32.6 Red Cell Distribution Width 14.6 Platelet Count 168 Mean Platelet Volume 9.7 Neutrophils (%) (Auto) 81.7 Lymphocytes (%) (Auto) 9.5 Monocytes (%) (Auto) 7.8 Eosinophils (%) (Auto) 0.4 Basophils (%) (Auto) 0.6 Neutrophils # (Auto) 8.2 Lymphocytes # (Auto) 1.0 Monocytes # (Auto) 0.8 Eosinophils # (Auto) 0.0 Basophils # (Auto) 0.1 CBC Comment DIFF FINAL Differential Comment Prothrombin Time 10.9 Prothromb Time International Ratio 1.1 Activated Partial Thromboplast Time 24.3 Blood Urea Nitrogen 11 Creatinine 0.75 Random Glucose 104 Total Protein 7.1 Albumin 3.5 Calcium Level 9.1 Phosphorus Level 2.4 Magnesium Level 2.1 Alkaline Phosphatase 110 Aspartate Amino Transf (AST/SGOT) 12 Alanine Aminotransferase (ALT/SGPT) 14 Total Bilirubin 1.0 Sodium Level 142 Potassium Level 3.3 Chloride Level 94 Carbon Dioxide Level 40.4 Anion Gap 8 Estimat Glomerular Filtration Rate 76 Lactic Acid Level 1.6 Total Creatine Kinase 44 Troponin I LESS THAN 0.02 Lipase 130 Blood Gas Puncture Site RT RADIAL Blood Gas Patient Temperature 98.6 Blood Gas HCO3 42 Blood Gas Base Excess 15.8 Blood Gas Oxygen Saturation 94 Arterial Blood pH 7.36 Arterial Blood Partial Pressure CO2 76 Arterial Blood Partial Pressure O2 82 Arterial Blood Oxygen Content 21.9 Arterial Blood Carboxyhemoglobin 2.2 Arterial Blood Methemoglobin 0.7 Blood Gas Hemoglobin 16.5 Oxygen Delivery Device BiPAP Blood Gas Ventilator Setting 10/5 Blood Gas Inspired Oxygen 40 Date/Time Source Procedure Growth Status 09/26/17 14:00 Blood Peripheral Aerobic Blood Culture Pending Received 09/26/17 14:00 Blood Peripheral Anaerobic Blood Culture Pending Received Result Diagram: 09/26/17 1400 09/26/17 1400 Caprini VTE Risk Assessment Caprini VTE Risk Assessment: Mod/High Risk (score >= 2) Caprini Risk Assessment Model Point Value = 1 Point Value = 2 Point Value = 3 Point Value = 5 Age 41-60 Minor surgery BMI > 25 kg/m2 Swollen legs Varicose veins or History of unexplained or recurrent spontaneous Oral contraceptives or hormone replacement Sepsis (< 1 month) Serious lung disease, including pneumonia (< 1 month) Abnormal pulmonary function Acute myocardial infarction Congestive heart failure (< 1 month) History of inflammatory bowel disease Medical patient at bed rest Age 61-74 Arthroscopic surgery Major open surgery (> 45 min) Laparoscopic surgery (> 45 min) Malignancy Confined to bed (> 72 hours) Immobilizing plaster cast Central venous access Age >= 75 History of VTE Family history of VTE Factor V Leiden Prothrombin [id number] Lupus anticoagulant Anticardiolipin antibodies Elevated serum homocysteine Heparin-induced thrombocytopenia Other congenital or acquired thrombophilia Stroke (< 1 month) Elective arthroplasty Hip, pelvis, or leg fracture Acute spinal cord injury (< 1 month) Prophylaxis Regimen Total Risk Factor Score Risk Level Prophylaxis Regimen 0-1 Low Early ambulation 2 Moderate Order ONE of the following: *Sequential Compression Device (SCD) *Heparin 5000 units SQ BID 3-4 Higher Order ONE of the following medications: *Heparin 5000 units SQ TID *Enoxaparin/Lovenox 40 mg SQ daily (WT < 150 kg, CrCl > 30 mL/min) *Enoxaparin/Lovenox 30 mg SQ daily (WT < 150 kg, CrCl > 10-29 mL/min) *Enoxaparin/Lovenox 30 mg SQ BID (WT < 150 kg, CrCl > 30 mL/min) AND/OR *Sequential Compression Device (SCD) 5 or more Highest Order ONE of the following medications: *Heparin 5000 units SQ TID (Preferred with Epidurals) *Enoxaparin/Lovenox 40 mg SQ daily (WT < 150 kg, CrCl > 30 mL/min) *Enoxaparin/Lovenox 30 mg SQ daily (WT < 150 kg, CrCl > 10-29 mL/min) *Enoxaparin/Lovenox 30 mg SQ BID (WT < 150 kg, CrCl > 30 mL/min) AND *Sequential Compression Device (SCD) Assessment and Plan Assessment and Plan Assessment/plan: 1. COPD exacerbation Chest x-ray negative for acute process AB.3 //42 BiPAP Repeat ABG pending Patient reports increasing productive cough, Levaquin IV steroids Duo nebs Sputum culture pending Continue on Anoro 2. Hypertension Continue home medication FEN Heart healthy diet Electrolytes: Status post p.o. potassium, monitor BMP Heparin Physician Certification 2 Midnight Certification Type: Admission for Inpatient Services Order for Inpatient Services The services are ordered in accordance with Medicare regulations or non- Medicare payer requirements, as applicable. In the case of services not specified as inpatient-only, they are appropriately provided as inpatient services in accordance with the 2-midnight benchmark. Estimated LOS (days): 2 2 days is the estimated time the patient will need to remain in the hospital, assuming treatment plan goals are met and no additional complications. Post-Hospital Plan: Not yet determined Aisha Monge MD Sep 26, 2017 20:52
[2017-09-26] MEDS: methylPREDNISolone SOD SUCC 125 MG/2 ML VIAL IV PUSH SCH (21:00)
[2017-09-26] MEDS: SODIUM CHLORIDE 0.9% FLUSH 10 ML FLUSH IV FLUSH SCH (21:00)
[2017-09-26] MEDS ORDERED: cloNIDine HCL 0.1 MG TAB PO PRN (21:15)
[2017-09-26] MEDS: HEPARIN SODIUM - SQ 10,000 UNITS/ML VIAL SQ SCH (22:00)
[2017-09-27] VITALS (23 sets, daily range): BP systolic 159–187; BP diastolic 94–109; PULSE 59–98; RESP 18–28; TEMP 97.6–98.4; O2SAT 90–97
[2017-09-27] MEDS: HEPARIN SODIUM - SQ 10,000 UNITS/ML VIAL SQ SCH ×3 (04:25→20:07)
[2017-09-27] MEDS: methylPREDNISolone SOD SUCC 125 MG/2 ML VIAL IV PUSH SCH ×4 (04:25→20:06)
[2017-09-27 06:58] LABS: AUTOMATED NEUTROPHIL # 4.3 TH/MM3 (1.8-7.7); BASOPHIL % 0.1 % (0.0-2.0); HEMOGLOBIN 15.5 GM/DL (11.6-15.3); LYMPHOCYTE # 0.3 TH/MM3 (1.0-4.8); MEAN CELL VOLUME 94.1 FL (80.0-100.0); MEAN CORPUSCULAR HGB CONC 32.9 % (32.0-36.0); MEAN PLATELET VOLUME 9.4 FL (7.0-11.0); MONO % 2.4 % (0.0-8.0); MONOCYTE # 0.1 TH/MM3 (0-0.9); NEUT % 91.5 % (16.0-70.0); PLATELET COUNT 143 TH/MM3 (150-450); RED CELL DISTRIBUTION WIDTH 13.8 % (11.6-17.2); WHITE BLOOD COUNT 4.7 TH/MM3 (4.0-11.0)
[2017-09-27 07:29] LABS: ALBUMIN 3.2 GM/DL (3.4-5.0); ALT (GPT) 13 U/L (10-53); AST (GOT) 7 U/L (15-37); BICARBONATE 39.3 MEQ/L (21.0-32.0); BLOOD UREA NITROGEN 12 MG/DL (7-18); CALCIUM 8.9 MG/DL (8.5-10.1); CHLORIDE 95 MEQ/L (98-107); CREATININE 0.63 MG/DL (0.50-1.00); GLOMERULAR FILTRATION RATE 93 ML/MIN (>89); GLUCOSE,RANDOM 128 MG/DL (74-106); SODIUM (NA) 139 MEQ/L (136-145)
[2017-09-27 07:30] LABS: TOTAL PROTEIN 6.6 GM/DL (6.4-8.2)
[2017-09-27 07:31] LABS: ALKALINE PHOSPHATASE 101 U/L (45-117); TOTAL BILIRUBIN ADULT 0.6 MG/DL (0.2-1.0)
[2017-09-27] MEDS: UMECLIDINIUM 62.5 MCG/VILANTEROL 25 MCG INHALER INH SCH (08:26)
[2017-09-27] MEDS: SODIUM CHLORIDE 0.9% FLUSH 10 ML FLUSH IV FLUSH SCH ×2 (08:27→20:08)
[2017-09-27] MEDS: TRIAMTERENE/HCTZ 37.5 MG/25 MG TAB PO SCH (08:27)
[2017-09-27] MEDS: RESP: ALBUTEROL 2.5 MG/IPRATROPIUM 0.5 MG NEB (PRN) NEB (08:31)
[2017-09-27] MEDS ORDERED: MORPHINE SULFATE 4 MG/ML INJ IV PUSH ONE (10:15)
[2017-09-27] MEDS: RESP: ALBUTEROL 2.5 MG/IPRATROPIUM 0.5 MG NEB (SCH) NEB ×3 (11:52→19:34)
[2017-09-27] MEDS: MORPHINE SULFATE 4 MG/ML INJ IV PUSH PRN ×3 (13:53→22:22)
[2017-09-27] MEDS ORDERED: LEVOFLOXACIN 750 MG TAB PO SCH (15:00)
[2017-09-27] MEDS ORDERED: CAPTOPRIL 25 MG TAB PO ONE (15:15)
[2017-09-27] MEDS: LEVOFLOXACIN 750 MG PREMIX INJ 150 ML IV SCH (15:24)
--- NOTE | 2017-09-27 19:18 | EKG ---
Date Performed: 09/26/2017 Time Performed: 14:51:17 PTAGE: 72 years EKG: Sinus rhythm NORMAL ECG NO PREVIOUS TRACING Since the previous tracing, no significant change noted DOCTOR: Stacia Preciado Interpretating Date/Time 09/27/2017 19:17:48
[2017-09-27] MEDS: CAPTOPRIL 25 MG TAB PO SCH (20:04)
[2017-09-27] MEDS: BUDESONIDE-FORMOTEROL 160/4.5 MCG INHALER INH SCH (20:08)
--- NOTE | 2017-09-27 23:38 | HHI.PR ---
Subjective Remarks Follow up for COPD exacerbation. Patient was seen in the morning - she was somewhat anxious and in mild respiratory distress. No fever or chills. Later in the day, however, she felt better after receiving some morphine. Objective Vitals Vital Signs Date Time Temp Pulse Resp B/P (MAP) Pulse Ox O2 Delivery O2 Flow Rate FiO2 09/27/17 20:00 77 09/27/17 20:00 97.6 80 22 159/94 (115) 90 09/27/17 19:34 93 Nasal Cannula 4.00 09/27/17 18:00 90 09/27/17 17:00 80 09/27/17 16:00 76 09/27/17 16:00 98.4 81 20 163/94 (117) 90 09/27/17 15:00 78 09/27/17 14:31 16 09/27/17 14:00 68 09/27/17 13:00 62 09/27/17 12:00 67 09/27/17 12:00 98.4 66 22 178/109 (132) 95 09/27/17 11:00 70 09/27/17 10:00 98 09/27/17 09:24 92 40 09/27/17 09:00 86 09/27/17 08:31 95 Nasal Cannula 4.00 09/27/17 08:00 98.4 98 28 187/101 (129) 94 09/27/17 08:00 62 09/27/17 07:00 60 09/27/17 05:31 59 18 97 09/27/17 04:39 74 09/27/17 02:51 96 Nasal Cannula 4.00 09/27/17 00:00 76 18 96 09/27/17 00:00 72 I/O 09/27/17 09/27/17 09/27/17 09/28/17 09/28/17 09/28/17 07:00 15:00 23:00 07:00 15:00 23:00 Intake Total 480 ml 880 ml Output Total 400 ml 1250 ml Balance 80 ml -370 ml Intake Oral 480 ml 780 ml IV Total 100 ml Output Urine Total 400 ml 1250 ml # Bowel Movements 0 Result Diagram: 09/27/17 0644 09/27/17 0644 Imaging Last Impressions Head CT 09/28/17 0000 Signed Impressions: CONCLUSION: 1. Stable noncontrast head CT. No acute intracranial abnormality is identified . 2. Stable low-density on the right may represent encephalomalacia from old isc hemia. Chest X-Ray 09/26/17 3896 Signed Impressions: CONCLUSION: Negative examination. Objective Remarks GENERAL: Alert, Oriented x 3, NAD. SKIN: Warm and dry. HEAD: Normocephalic. EYES: No scleral icterus. No injection or drainage. NECK: Supple, trachea midline. No JVD or lymphadenopathy. CARDIOVASCULAR: Regular rate and rhythm without murmurs, gallops, or rubs. RESPIRATORY: Poor air entry, no appreciable wheezing. No accessory muscle use. GASTROINTESTINAL: Abdomen soft, non-tender, nondistended. MUSCULOSKELETAL: No cyanosis, or edema. BACK: Nontender without obvious deformity. No CVA tenderness. Procedures None. A/P Problem List: (1) COPD with acute exacerbation ICD Code: J44.1 - Chronic obstructive pulmonary disease with (acute) exacerbation Assessment and Plan 72-year-old female with a past medical history significant for COPD currently on 3 L nasal cannula at home, hypertension, depression, tremors and migraine headaches presents to the emergency department for the evaluation of shortness of breath. ABG on admission shows CO2 retention. Acute exacerbation of COPD -Continue DuoNeb, supplemental O2, Solu-medrol, Levaquin, Symbicort. -BiPAP at night Hypertension - Continue Triamterene-HCTZ combination, start Captopril 25mg Q8hrs. Headache Chronic pain - Acetaminophen. May consider low dose [place]. Full code. Heparin SQ. Gloria Shaver DO Sep 27, 2017 23:38
[2017-09-28] VITALS (24 sets, daily range): BP systolic 138–163; BP diastolic 88–94; PULSE 62–96; RESP 18–34; TEMP 97.7–98.3; O2SAT 91–98
[2017-09-28] MEDS: CAPTOPRIL 25 MG TAB PO SCH ×3 (03:17→21:26)
[2017-09-28] MEDS: methylPREDNISolone SOD SUCC 125 MG/2 ML VIAL IV PUSH SCH ×4 (03:17→21:19)
[2017-09-28] MEDS: HEPARIN SODIUM - SQ 10,000 UNITS/ML VIAL SQ SCH ×3 (03:18→21:19)
[2017-09-28] MEDS: MORPHINE SULFATE 4 MG/ML INJ IV PUSH PRN ×4 (03:19→14:33)
[2017-09-28] MEDS: RESP: ALBUTEROL 2.5 MG/IPRATROPIUM 0.5 MG NEB (SCH) NEB ×4 (08:29→20:18)
[2017-09-28] MEDS: BUDESONIDE-FORMOTEROL 160/4.5 MCG INHALER INH SCH ×2 (09:03→21:15)
[2017-09-28] MEDS: UMECLIDINIUM 62.5 MCG/VILANTEROL 25 MCG INHALER INH SCH (09:03)
[2017-09-28] MEDS: SODIUM CHLORIDE 0.9% FLUSH 10 ML FLUSH IV FLUSH SCH ×2 (09:05→21:18)
[2017-09-28] MEDS: TRIAMTERENE/HCTZ 37.5 MG/25 MG TAB PO SCH (09:05)
[2017-09-28] MEDS: LEVOFLOXACIN 750 MG PREMIX INJ 150 ML IV SCH (16:32)
[2017-09-28] MEDS ORDERED: LORazepam 2 MG/ML VIAL IV PUSH ONE (20:45)
[2017-09-28] MEDS: oxyCODONE/ACETAMINOPHEN 5 MG/325 MG TAB PO PRN (21:18)
--- NOTE | 2017-09-28 22:43 | RADRPT ---
EXAM DATE: 09/28/2017 10:39 PM EDT AGE/SEX: 72 years / Female INDICATIONS: Unequal pupils, tremors. Cephalgia. CLINICAL DATA: This is the patient's initial encounter. Patient reports that signs and symptoms have been present for 1 day and indicates a pain score of 6/10. MEDICAL/SURGICAL HISTORY: Cardiovascular disease. . RADIATION DOSE: 55.40 CTDI (mGy) [place] [facility] [place]/21/[place]. . TECHNIQUE: CT of the head without contrast. Using automated exposure control and adjustment of the mA and/or kV according to patient size, radiation dose was kept as low as reasonably achievable to ob tain optimal diagnostic quality images. FINDINGS: Cerebrum: The ventricles are normal. There is a stable low-density in the right frontoparietal regio n. No midline shift, mass lesion, hemorrhage or acute infarction. No extraaxial fluid collections ar e seen. Posterior Fossa: The cerebellum and brainstem demonstrate no acute abnormality. The 4th ventricle is midline. The cerebellopontine angle is within normal limits. Extracranial: The visualized sinuses are clear. Skull: The calvaria is intact. No skull fracture. CONCLUSION: 1. Stable noncontrast head CT. No acute intracranial abnormality is identified. 2. Stable low-density on the right may represent encephalomalacia from old ischemia. Electronically signed by: Caden Peterson MD 09/28/2017 10:42 PM EDT
--- NOTE | 2017-09-28 23:25 | HHI.PR ---
Subjective Remarks Follow up for COPD exacerbation. Patient was seen in the morning. She is again requiring higher amount of O2 to maintain O2 sat around 90%. No fever, chills. Objective Vitals Vital Signs Date Time Temp Pulse Resp B/P (MAP) Pulse Ox O2 Delivery O2 Flow Rate FiO2 09/28/17 23:23 98 40 09/28/17 18:00 88 09/28/17 17:00 76 09/28/17 16:00 74 09/28/17 16:00 97.8 84 24 138/89 (105) 94 09/28/17 15:00 77 09/28/17 14:39 20 09/28/17 14:00 86 09/28/17 14:00 18 09/28/17 13:00 92 09/28/17 12:30 92 Venturi Mask 6.00 09/28/17 12:00 98.3 84 24 163/88 (113) 93 09/28/17 12:00 80 09/28/17 11:30 92 Nasal Cannula 4.00 09/28/17 11:00 75 09/28/17 10:00 78 09/28/17 09:00 96 09/28/17 08:40 93 Venturi Mask 50 09/28/17 08:30 91 Nasal Cannula 4.00 09/28/17 08:00 97.9 81 34 160/94 (116) 93 09/28/17 08:00 76 09/28/17 08:00 90 Venturi Mask 6.00 09/28/17 07:00 71 09/28/17 06:00 62 09/28/17 05:00 66 09/28/17 04:00 97.7 77 22 162/91 (114) 95 09/28/17 04:00 75 09/28/17 03:00 62 09/28/17 02:00 64 09/28/17 01:00 68 09/28/17 00:00 98.1 86 22 146/90 (108) 94 09/28/17 00:00 71 I/O 09/28/17 09/28/17 09/28/17 09/29/17 09/29/17 09/29/17 07:00 15:00 23:00 07:00 15:00 23:00 Intake Total 240 ml 480 ml Output Total 500 ml 600 ml Balance -260 ml -120 ml Intake Oral 240 ml 480 ml Output Urine Total 500 ml 600 ml Result Diagram: 09/27/17 0644 09/27/17 0644 Imaging Last Impressions Head CT 09/28/17 0000 Signed Impressions: CONCLUSION: 1. Stable noncontrast head CT. No acute intracranial abnormality is identified . 2. Stable low-density on the right may represent encephalomalacia from old isc hemia. Chest X-Ray 09/26/17 1356 Signed Impressions: CONCLUSION: Negative examination. Objective Remarks GENERAL: Alert oriented x 3, NAD. SKIN: Warm and dry. HEAD: Normocephalic. EYES: No scleral icterus. No injection or drainage. NECK: Supple, trachea midline. No JVD or lymphadenopathy. CARDIOVASCULAR: Regular rate and rhythm without murmurs, gallops, or rubs. RESPIRATORY: Poor air entry, no appreciable wheezes. No accessory muscle use. GASTROINTESTINAL: Abdomen soft, non-tender, nondistended. MUSCULOSKELETAL: No cyanosis, or edema. BACK: Nontender without obvious deformity. No CVA tenderness. Procedures None. A/P Problem List: (1) COPD with acute exacerbation ICD Code: J44.1 - Chronic obstructive pulmonary disease with (acute) exacerbation Assessment and Plan 72-year-old female with a past medical history significant for COPD currently on 3 L nasal cannula at home, hypertension, depression, tremors and migraine headaches presents to the emergency department for the evaluation of shortness of breath. ABG on admission shows CO2 retention. Acute exacerbation of COPD -Continue DuoNeb, supplemental O2, Solu-medrol, Levaquin, Symbicort. -BiPAP at night -wean off O2 to keep O2 sat around 88-90%. Hypertension - Continue Triamterene-HCTZ combination, Captopril 25mg Q8hrs. Headache Chronic pain - Acetaminophen. Will start low dose Percocet. Full code. Heparin SQ. Gloria Shaver DO Sep 28, 2017 23:25
[2017-09-29] VITALS (21 sets, daily range): BP systolic 142–149; BP diastolic 81–99; PULSE 66–101; RESP 18–24; TEMP 97.9–98.6; O2SAT 91–99
[2017-09-29] MEDS: methylPREDNISolone SOD SUCC 125 MG/2 ML VIAL IV PUSH SCH ×4 (03:00→20:34)
[2017-09-29] MEDS: CAPTOPRIL 25 MG TAB PO SCH ×3 (06:00→20:40)
[2017-09-29] MEDS: HEPARIN SODIUM - SQ 10,000 UNITS/ML VIAL SQ SCH ×3 (08:03→20:40)
[2017-09-29] MEDS: SODIUM CHLORIDE 0.9% FLUSH 10 ML FLUSH IV FLUSH SCH ×2 (09:21→20:41)
[2017-09-29] MEDS: TRIAMTERENE/HCTZ 37.5 MG/25 MG TAB PO SCH (09:21)
[2017-09-29] MEDS: UMECLIDINIUM 62.5 MCG/VILANTEROL 25 MCG INHALER INH SCH (09:21)
[2017-09-29] MEDS: BUDESONIDE-FORMOTEROL 160/4.5 MCG INHALER INH SCH ×2 (09:21→20:41)
[2017-09-29] MEDS: RESP: ALBUTEROL 2.5 MG/IPRATROPIUM 0.5 MG NEB (SCH) NEB ×4 (09:54→20:02)
[2017-09-29] MEDS: oxyCODONE/ACETAMINOPHEN 5 MG/325 MG TAB PO PRN ×2 (10:29→20:36)
[2017-09-29] MEDS ORDERED: LACTULOSE SYRUP 20 GM/30 ML CUP PO PRN (12:00)
[2017-09-29] MEDS ORDERED: SENNOSIDES 8.6 MG TAB PO PRN (12:00)
[2017-09-29] MEDS ORDERED: BISACODYL 10 MG SUPP RECTAL PRN (12:00)
[2017-09-29] MEDS ORDERED: MAGNESIUM HYDROXIDE SUSP 30 ML CUP PO PRN (12:00)
[2017-09-29] MEDS ORDERED: NALOXONE HCL 0.4 MG/ML AMP IV PUSH PRN (12:00)
--- NOTE | 2017-09-29 14:09 | HHI.PR ---
Subjective Remarks Follow up for COPD exacerbation. Patient is currently doing well. Sitting in her chair. Denies any chest pain, shortness of breath, fever or chills. She is tolerating nasal cannula well. She used BiPAP overnight. Objective Vitals Vital Signs Date Time Temp Pulse Resp B/P (MAP) Pulse Ox O2 Delivery O2 Flow Rate FiO2 09/29/17 09:56 93 Nasal Cannula 4.00 09/29/17 08:00 97.9 81 20 149/88 (108) 97 09/29/17 04:00 98.4 73 18 142/99 (113) 99 09/29/17 03:14 97 40 09/29/17 00:00 98.6 91 18 148/88 (108) 97 09/28/17 23:23 98 40 09/28/17 21:00 99 Bi-Pap 09/28/17 20:20 97 Nasal Cannula 4.00 09/28/17 20:01 97 Nasal Cannula 4.00 09/28/17 20:00 98 Nasal Cannula 6.00 09/28/17 20:00 98.0 81 18 152/94 (113) 93 09/28/17 18:00 88 09/28/17 17:00 76 09/28/17 16:00 74 09/28/17 16:00 97.8 84 24 138/89 (105) 94 09/28/17 15:00 77 09/28/17 14:39 20 I/O 09/28/17 09/28/17 09/28/17 09/29/17 09/29/17 09/29/17 07:00 15:00 23:00 07:00 15:00 23:00 Intake Total 240 ml 480 ml 240 ml Output Total 500 ml 600 ml 345 ml Balance -260 ml -120 ml -105 ml Intake Oral 240 ml 480 ml 240 ml Output Urine Total 500 ml 600 ml 345 ml # Bowel Movements 0 Result Diagram: 09/27/17 0644 09/27/17 0644 Imaging Last Impressions Head CT 09/28/17 0000 Signed Impressions: CONCLUSION: 1. Stable noncontrast head CT. No acute intracranial abnormality is identified . 2. Stable low-density on the right may represent encephalomalacia from old isc hemia. Chest X-Ray 09/26/17 1356 Signed Impressions: CONCLUSION: Negative examination. Objective Remarks GENERAL: Alert oriented x 3, NAD. SKIN: Warm and dry. HEAD: Normocephalic. EYES: No scleral icterus. No injection or drainage. NECK: Supple, trachea midline. No JVD or lymphadenopathy. CARDIOVASCULAR: Regular rate and rhythm without murmurs, gallops, or rubs. RESPIRATORY: Poor air entry, no appreciable wheezes. No accessory muscle use. GASTROINTESTINAL: Abdomen soft, non-tender, nondistended. MUSCULOSKELETAL: No cyanosis, or edema. BACK: Nontender without obvious deformity. No CVA tenderness. Procedures None. A/P Problem List: (1) COPD with acute exacerbation ICD Code: J44.1 - Chronic obstructive pulmonary disease with (acute) exacerbation Assessment and Plan 72-year-old female with a past medical history significant for COPD currently on 3 L nasal cannula at home, hypertension, depression, tremors and migraine headaches presents to the emergency department for the evaluation of shortness of breath. ABG on admission shows CO2 retention. Acute exacerbation of COPD Anxiety -Continue DuoNeb, supplemental O2, Solu-medrol, Levaquin, Symbicort. -BiPAP at night -wean off O2 to keep O2 sat around 88-90%. -ABG reviewed. PCO2 is improved. -Continue morphine and will add small dose of anxiolytics. Hypertension - Continue Triamterene-HCTZ combination, Captopril 25mg Q8hrs. Headache Chronic pain - Acetaminophen. Continue low-dose Percocet. Full code. Heparin SQ. Gloria Shaver DO Sep 29, 2017 2:09 pm
[2017-09-29] MEDS: LEVOFLOXACIN 750 MG PREMIX INJ 150 ML IV SCH (16:02)
[2017-09-29] MEDS: NYSTATIN 100,000 U/GM PWD 15 GM BTL TOPICAL SCH ×2 (17:03→20:40)
[2017-09-29] MEDS: clonazePAM 0.5 MG TAB PO PRN (17:03)
[2017-09-30] VITALS (15 sets, daily range): BP systolic 108–141; BP diastolic 67–95; PULSE 62–92; RESP 18–20; TEMP 97.8–98.3; O2SAT 94–98
[2017-09-30] MEDS: clonazePAM 0.5 MG TAB PO PRN ×3 (02:20→20:24)
[2017-09-30] MEDS: methylPREDNISolone SOD SUCC 125 MG/2 ML VIAL IV PUSH SCH ×4 (02:20→20:23)
[2017-09-30] MEDS: CAPTOPRIL 25 MG TAB PO SCH ×3 (05:24→20:23)
[2017-09-30] MEDS: NYSTATIN 100,000 U/GM PWD 15 GM BTL TOPICAL SCH ×3 (05:25→20:24)
[2017-09-30] MEDS: HEPARIN SODIUM - SQ 10,000 UNITS/ML VIAL SQ SCH ×4 (05:25→20:22)
[2017-09-30] MEDS: RESP: ALBUTEROL 2.5 MG/IPRATROPIUM 0.5 MG NEB (SCH) NEB ×4 (08:52→19:44)
[2017-09-30] MEDS: TRIAMTERENE/HCTZ 37.5 MG/25 MG TAB PO SCH (09:25)
[2017-09-30] MEDS: BUDESONIDE-FORMOTEROL 160/4.5 MCG INHALER INH SCH ×2 (09:25→20:19)
[2017-09-30] MEDS: SODIUM CHLORIDE 0.9% FLUSH 10 ML FLUSH IV FLUSH SCH ×2 (09:25→20:23)
[2017-09-30] MEDS: UMECLIDINIUM 62.5 MCG/VILANTEROL 25 MCG INHALER INH SCH (09:25)
--- NOTE | 2017-09-30 10:00 | HHI.PR ---
Subjective Remarks Follow up for COPD exacerbation. Patient is currently doing better. On 2 L of O2 via NC. No fever, chills. She still has whole body tremors. Objective Vitals Vital Signs Date Time Temp Pulse Resp B/P (MAP) Pulse Ox O2 Delivery O2 Flow Rate FiO2 09/30/17 06:00 84 09/30/17 05:00 81 09/30/17 04:00 84 09/30/17 04:00 Nasal Cannula 2.00 09/30/17 04:00 98.2 84 18 139/70 (93) 95 09/30/17 03:00 92 09/30/17 02:00 72 09/30/17 01:00 77 09/30/17 00:00 Nasal Cannula 2.00 09/30/17 00:00 98.0 73 20 108/67 (81) 98 09/30/17 00:00 73 09/29/17 23:00 92 09/29/17 22:00 84 09/29/17 21:00 88 09/29/17 20:02 95 Nasal Cannula 2.00 09/29/17 20:00 98.3 94 22 149/81 (103) 94 09/29/17 20:00 Nasal Cannula 2.00 09/29/17 20:00 94 09/29/17 18:00 90 09/29/17 17:00 92 09/29/17 16:00 98.1 86 22 147/88 (107) 97 09/29/17 16:00 94 09/29/17 15:00 85 09/29/17 14:00 84 09/29/17 13:00 100 09/29/17 12:00 100 09/29/17 12:00 98.1 101 24 142/87 (105) 91 09/29/17 11:30 18 09/29/17 11:00 86 I/O 09/29/17 09/29/17 09/29/17 09/30/17 09/30/17 09/30/17 07:00 15:00 23:00 07:00 15:00 23:00 Intake Total 240 ml 640 ml Output Total 345 ml 1200 ml Balance -105 ml -560 ml Intake Oral 240 ml 640 ml Output Urine Total 345 ml 1200 ml # Bowel Movements 0 Result Diagram: 09/27/17 0644 09/27/17 0644 Imaging Last Impressions Head CT 09/28/17 0000 Signed Impressions: CONCLUSION: 1. Stable noncontrast head CT. No acute intracranial abnormality is identified . 2. Stable low-density on the right may represent encephalomalacia from old isc hemia. Chest X-Ray 09/26/17 1356 Signed Impressions: CONCLUSION: Negative examination. Objective Remarks GENERAL: Alert oriented x 3, NAD. SKIN: Warm and dry. HEAD: Normocephalic. EYES: No scleral icterus. No injection or drainage. NECK: Supple, trachea midline. No JVD or lymphadenopathy. CARDIOVASCULAR: Regular rate and rhythm without murmurs, gallops, or rubs. RESPIRATORY: Poor air entry, no appreciable wheezes. No accessory muscle use. GASTROINTESTINAL: Abdomen soft, non-tender, nondistended. MUSCULOSKELETAL: No cyanosis, or edema. BACK: Nontender without obvious deformity. No CVA tenderness. Procedures None. A/P Problem List: (1) COPD with acute exacerbation ICD Code: J44.1 - Chronic obstructive pulmonary disease with (acute) exacerbation Assessment and Plan 72-year-old female with a past medical history significant for COPD currently on 3 L nasal cannula at home, hypertension, depression, tremors and migraine headaches presents to the emergency department for the evaluation of shortness of breath. ABG on admission shows CO2 retention. Acute exacerbation of COPD Anxiety -Continue DuoNeb, supplemental O2, Solu-medrol, Levaquin, Symbicort. -BiPAP at night -wean off O2 to keep O2 sat around 88-90%. Currently on 2L via nasal cannula. -Continue morphine and will add small dose of anxiolytics. Hypertension - Continue Triamterene-HCTZ combination, Captopril 25mg Q8hrs. Headache Chronic pain - Acetaminophen. Continue low-dose Percocet. Full code. Heparin SQ. Gloria Shaver DO Sep 30, 2017 10:00
[2017-09-30] MEDS: LEVOFLOXACIN 750 MG PREMIX INJ 150 ML IV SCH (17:54)
[2017-09-30] MEDS: oxyCODONE/ACETAMINOPHEN 5 MG/325 MG TAB PO PRN (20:22)
[2017-10-01] VITALS (16 sets, daily range): BP systolic 128–179; BP diastolic 75–98; PULSE 60–108; RESP 18–19; TEMP 97.7–98.2; O2SAT 94–97
[2017-10-01] MEDS: methylPREDNISolone SOD SUCC 125 MG/2 ML VIAL IV PUSH SCH ×4 (04:15→21:11)
[2017-10-01] MEDS: NYSTATIN 100,000 U/GM PWD 15 GM BTL TOPICAL SCH ×3 (05:15→21:13)
[2017-10-01] MEDS: HEPARIN SODIUM - SQ 10,000 UNITS/ML VIAL SQ SCH ×2 (05:15→16:47)
[2017-10-01] MEDS: CAPTOPRIL 25 MG TAB PO SCH ×3 (05:15→21:12)
[2017-10-01] MEDS: SODIUM CHLORIDE 0.9% FLUSH 10 ML FLUSH IV FLUSH SCH ×2 (08:53→21:09)
[2017-10-01] MEDS: TRIAMTERENE/HCTZ 37.5 MG/25 MG TAB PO SCH (08:53)
[2017-10-01] MEDS: UMECLIDINIUM 62.5 MCG/VILANTEROL 25 MCG INHALER INH SCH (08:58)
[2017-10-01] MEDS: RESP: ALBUTEROL 2.5 MG/IPRATROPIUM 0.5 MG NEB (SCH) NEB (09:12)
[2017-10-01] MEDS: BUDESONIDE-FORMOTEROL 160/4.5 MCG INHALER INH SCH ×2 (12:49→21:09)
[2017-10-01] MEDS: clonazePAM 0.5 MG TAB PO PRN ×2 (12:54→21:10)
[2017-10-01] MEDS: MORPHINE SULFATE 4 MG/ML INJ IV PUSH PRN (14:41)
[2017-10-01] MEDS: LEVOFLOXACIN 750 MG PREMIX INJ 150 ML IV SCH (16:48)
[2017-10-01] MEDS: oxyCODONE/ACETAMINOPHEN 5 MG/325 MG TAB PO PRN (21:10)
--- NOTE | 2017-10-01 23:35 | HHI.PR ---
Subjective Remarks Follow up for COPD exacerbation. Patient is doing well. No CP, SOB, fever, chills. Tolerating 2-3 L of O2 via NC. However, patient later in the day fell while trying to get to bed from bedside commode. She is now willing to consider going to SNF. Objective Vitals Vital Signs Date Time Temp Pulse Resp B/P (MAP) Pulse Ox O2 Delivery O2 Flow Rate FiO2 10/01/17 20:13 Nasal Cannula 2.00 10/01/17 16:00 90 10/01/17 16:00 85 10/01/17 16:00 98.0 108 19 141/90 (107) 96 10/01/17 14:46 20 10/01/17 12:00 98.0 99 19 179/95 (123) 95 10/01/17 12:00 89 10/01/17 12:00 87 10/01/17 12:00 Nasal Cannula 2.00 10/01/17 09:20 94 Nasal Cannula 2.00 10/01/17 08:00 Nasal Cannula 2.00 10/01/17 08:00 62 10/01/17 08:00 97.7 92 19 130/83 (99) 97 10/01/17 06:00 75 10/01/17 05:00 68 10/01/17 04:00 73 10/01/17 04:00 98.0 73 18 136/93 (107) 95 10/01/17 04:00 Nasal Cannula 2.00 10/01/17 03:00 70 10/01/17 02:00 69 10/01/17 01:00 65 10/01/17 00:00 Nasal Cannula 2.00 10/01/17 00:00 60 10/01/17 00:00 98.1 60 18 139/75 (96) 96 I/O 10/01/17 10/01/17 10/01/17 10/02/17 10/02/17 10/02/17 07:00 15:00 23:00 07:00 15:00 23:00 Intake Total 470 ml Output Total 1000 ml Balance -530 ml Intake Oral 470 ml Output Urine Total 1000 ml # Voids 2 # Bowel Movements 0 Result Diagram: 09/27/1744 09/27/17643 Objective Remarks GENERAL: Alert oriented x 3, NAD. SKIN: Warm and dry. HEAD: Normocephalic. EYES: No scleral icterus. No injection or drainage. NECK: Supple, trachea midline. No JVD or lymphadenopathy. CARDIOVASCULAR: Regular rate and rhythm without murmurs, gallops, or rubs. RESPIRATORY: Poor air entry, no appreciable wheezes. No accessory muscle use. GASTROINTESTINAL: Abdomen soft, non-tender, nondistended. MUSCULOSKELETAL: No cyanosis, or edema. BACK: Nontender without obvious deformity. No CVA tenderness. Procedures None. A/P Problem List: (1) COPD with acute exacerbation ICD Code: J44.1 - Chronic obstructive pulmonary disease with (acute) exacerbation Assessment and Plan 72-year-old female with a past medical history significant for COPD currently on 3 L nasal cannula at home, hypertension, depression, tremors and migraine headaches presents to the emergency department for the evaluation of shortness of breath. ABG on admission shows CO2 retention. Acute exacerbation of COPD Anxiety -Continue DuoNeb, supplemental O2, Solu-medrol, Levaquin, Symbicort. -BiPAP at night -wean off O2 to keep O2 sat around 88-90%. Currently on 2L via nasal cannula. -Continue morphine and will add small dose of anxiolytics. Hypertension - Continue Triamterene-HCTZ combination, Captopril 25mg Q8hrs. Headache Chronic pain - Acetaminophen. Continue low-dose Percocet. Full code. Heparin SQ. Will work on getting her to SNF on 10/02/2017. Gloria Shaver DO Oct 01, 2017 23:35
[2017-10-02] VITALS (9 sets, daily range): BP systolic 120–134; BP diastolic 82–95; PULSE 68–94; RESP 18; TEMP 97.6–98.3; O2SAT 95
[2017-10-02] MEDS: HEPARIN SODIUM - SQ 10,000 UNITS/ML VIAL SQ SCH ×2 (00:58→12:00)
[2017-10-02] MEDS: methylPREDNISolone SOD SUCC 125 MG/2 ML VIAL IV PUSH SCH ×2 (04:24→08:06)
[2017-10-02] MEDS: CAPTOPRIL 25 MG TAB PO SCH ×2 (05:44→14:50)
[2017-10-02] MEDS: NYSTATIN 100,000 U/GM PWD 15 GM BTL TOPICAL SCH ×2 (05:45→14:51)
[2017-10-02] MEDS: SODIUM CHLORIDE 0.9% FLUSH 10 ML FLUSH IV FLUSH SCH (08:07)
[2017-10-02] MEDS: clonazePAM 0.5 MG TAB PO PRN ×2 (08:07→14:49)
[2017-10-02] MEDS: UMECLIDINIUM 62.5 MCG/VILANTEROL 25 MCG INHALER INH SCH (08:07)
[2017-10-02] MEDS: TRIAMTERENE/HCTZ 37.5 MG/25 MG TAB PO SCH (08:08)
[2017-10-02] MEDS ORDERED: LEVA750T9 PO (08:56)
[2017-10-02] MEDS ORDERED: CAPT25TA2 PO (08:56)
[2017-10-02] MEDS ORDERED: CLON.5 PO (08:56)
[2017-10-02] MEDS ORDERED: Nystatin Powder TOPICAL (08:56)
[2017-10-02] MEDS ORDERED: OXYC1TAB63 PO (08:56)
[2017-10-02] MEDS ORDERED: PRED10 PO (08:56)
[2017-10-02] MEDS: BUDESONIDE-FORMOTEROL 160/4.5 MCG INHALER INH SCH (14:50)
--- NOTE | 2017-10-02 19:07 | HHI.DS ---
Discharge Summary Admission Date Sep 26, 2017 at 17:27 Discharge Date: Oct 02, 2017 Admitting Diagnosis COPD exacerbation with hypoxia (1) COPD with acute exacerbation ICD Code: J44.1 - Chronic obstructive pulmonary disease with (acute) exacerbation Procedures None. Brief History - From Admission 72-year-old female with a past medical history significant for COPD currently on 3 L nasal cannula at home, hypertension, depression, tremors and migraine headaches presents to the emergency department for the evaluation of shortness of breath. The patient reports that for the past 4 days she has been feeling increasing worsening shortness of breath at rest as well as with exertion. She reports that despite compliance with her nasal cannula and albuterol of the laser treatments she has had no relief. She has a productive cough without fever or chills. Per EMS report the patient's pulse ox was 70% on room air upon their initial evaluation. She denies any chest pain. No abdominal pain. No nausea/vomiting/diarrhea. No lateralizing signs/symptoms. Imaging Last Impressions Head CT 09/28/17 0000 Signed Impressions: CONCLUSION: 1. Stable noncontrast head CT. No acute intracranial abnormality is identified . 2. Stable low-density on the right may represent encephalomalacia from old isc hemia. Chest X-Ray 09/26/17 1356 Signed Impressions: CONCLUSION: Negative examination. PE at Discharge GENERAL: Alert oriented x 3, NAD. SKIN: Warm and dry. HEAD: Normocephalic. EYES: No scleral icterus. No injection or drainage. NECK: Supple, trachea midline. No JVD or lymphadenopathy. CARDIOVASCULAR: Regular rate and rhythm without murmurs, gallops, or rubs. RESPIRATORY: Poor air entry, no appreciable wheezes. No accessory muscle use. GASTROINTESTINAL: Abdomen soft, non-tender, nondistended. MUSCULOSKELETAL: No cyanosis, or edema. BACK: Nontender without obvious deformity. No CVA tenderness. Pt update on day of discharge Patient is doing well. Currently on 2L of O2 via NC. No fever, chills. Hospital Course 72-year-old female with a past medical history significant for COPD currently on 3 L nasal cannula at home, hypertension, depression, tremors and migraine headaches presents to the emergency department for the evaluation of shortness of breath. ABG on admission shows CO2 retention. Acute exacerbation of COPD Anxiety -Continue DuoNeb, supplemental O2, Solu-medrol, Levaquin, Symbicort. -Used BiPAP first couple of nights. -wean off O2 to keep O2 sat around 88-90%. Currently on 2L via nasal cannula. -Continue morphine and small dose of anxiolytics. Hypertension - Continue Triamterene-HCTZ combination, Captopril 25mg Q8hrs. Headache Chronic pain - Acetaminophen. Continue low-dose Percocet. Full code. Heparin SQ. Pt Condition on Discharge: Good Discharge Disposition: Discharge to SNF Discharge Time: <= 30 minutes Discharge Instructions DIET: Follow Instructions for: Heart Healthy Diet Activities you can perform: Regular-No Restrictions Follow up Referrals: PCP Follow-up - 1 Week New Medications: Levofloxacin (Levaquin) 750 Mg Tablet 750 MG PO DAILY for Infection, #2 TAB 0 Refills Prednisone (Prednisone) 10 Mg Tab 10 MG PO BID for COPD for 5 Days, #10 TAB 0 Refills Captopril (Captopril) 25 Mg Tab 25 MG PO Q8HR for Blood Pressure Management, #90 TAB Take 1 hr before meals. Clonazepam (Klonopin) 0.5 Mg Tab 0.5 MG PO Q8HR PRN for ANXIETY, #21 TAB Oxycodone HCl/Acetaminophen (Oxycodone-Acetaminophen 5-325) 5 Mg-325 Mg Tablet 1 TAB PO Q6H PRN for PAIN SCALE 5 TO 10, #15 TAB [Nystatin Powder] () 15 APPLIC/15 GM POWD 1 APPLIC TOPICAL Q8HR for Infection for 10 Days Continued Medications: Albuterol 8.5 GM Inh (Proair Hfa 8.5 GM Inh) 90 Mcg/Act Aer 2 PUFF INH Q6H PRN for SOB/WHEEZING, #1 INHALER 0 Refills 108 mcg/actuation Ipratropium-Albuterol Neb (Duoneb) 0.5-2.5 Mg/3 Ml Neb 3 ML NEB QID for Breathing Treatment, #30 NEBULE 0 Refills Triamterene-Hydrochlorothiazide (Triamterene-Hydrochlorothiazide) 37.5-25 Mg Tab 1 TAB PO DAILY, #30 TAB 0 Refills Umeclidinium-Vilanterol Inh (Anoro Ellipta Inh) 62.5-25 Mcg/Act Aero 1 PUFF INH DAILY for COPD, #1 INHALER 0 Refills Gloria Shaver DO Oct 02, 2017 19:07
== END 2017-10-02 15:45 | DRG 192 ==
LOC: NEPC 13:40 → NEDA 17:27 → HCIS 21:30
PROVIDERS: ADMIT Hospitalist; ATTEND Hospitalist
PROC: 5A09357 Assistance with Respiratory Ventilation, Less than 24 Consecutive Hours, Continuous Positive Airway Pressure (ICD-10-PCS; principal; 2017-09-26)
DX: J44.1 Chronic obstructive pulmonary disease with (acute) exacerbation (principal); R06.03 Acute respiratory distress; I11.0 Hypertensive heart disease with heart failure; I50.9 Heart failure, unspecified; F32.9 Major depressive disorder, single episode, unspecified; R09.02 Hypoxemia; R25.1 Tremor, unspecified; F41.9 Anxiety disorder, unspecified; G43.909 Migraine, unspecified, not intractable, without status migrainosus; W19.XXXA Unspecified fall, initial encounter; F17.210 Nicotine dependence, cigarettes, uncomplicated
CPT/HCPCS: 36600; 70450; 71045; 80053; 82550; 82805; 83605; 83690; 83735; 84100; 84484; 85025; 85610; 85730; 87040; 93005; 94002; 94003; 94640; 94664; 96365; 96375; J1644; J1956; J2060; J2270; J2765; J2930

== ENCOUNTER 2017-10-06 02:31 | Observation (INO) | payer MEDICARE, MEDICAID ==
[~2017-10-06] VITALS: Ht 165.1 cm; Wt 75.0 kg
[~2017-10-06 02:31] MED LIST changes: +ALBUAER3 INH; -BRIO; +CAPT25TA2 PO; +CLON.5 PO; +IPRASOL NEB; +LEVA750T9 PO; -NEBUMIS6; +Nystatin Powder TOPICAL; +OXYC1TAB63 PO; +PRED10 PO; +TRIA37.5 PO; +UMEC1AER INH
[2017-10-06 02:45] VITALS: BP 137/84; PULSE 113; RESP 18; TEMP 98.1; O2SAT 95
[2017-10-06] MEDS ORDERED: TYLE325T PO (02:53)
[2017-10-06] MEDS ORDERED: UMEC1AER INH (02:53)
[2017-10-06] MEDS ORDERED: CAPT25TA2 PO (02:53)
--- NOTE | 2017-10-06 03:01 | PD ---
HPI . chest pain Chief Complaint: Chest Pain Time Seen by Provider: 03:00 Travel History International Travel<30 days: No Contact w/Intl Traveler<30days: No Traveled to known affect area: No History of Present Illness HPI Patient is a 72-year-old female who lives at a nursing rehab for the last week she said she was in our hospital for about a week prior to that she was admitted for COPD exacerbation tonight around 2 AM she awoke from sleep with severe burning substernal that lasted 10 minutes until they gave her aspirin and Klonopin by the time the paramedics arrived it was gone she has no symptoms at this time whatsoever in the ER she is pain-free she denies left-sided chest pain she denies left arm radiation there was no nausea no vomiting ,, She denies history of gastric reflux , she ate hamburger around 7 PM and then did not have anything salty or acidic or deep fried in the evening. all symptoms resolved in ER PFSH Past Medical History Asthma: No Autoimmune Disease: Yes Depression: Yes Heart Rhythm Problems: No Cancer: No Cardiovascular Problems: Yes High Cholesterol: Yes Chest Pain: No Congestive Heart Failure: Yes COPD: Yes Cerebrovascular Accident: No Diabetes: No Diminished Hearing: No Endocrine: No Gastrointestinal Disorders: Yes GERD: Yes Genitourinary: No Hiatal Hernia: No Hypertension: Yes Immune Disorder: No Musculoskeletal: No Neurologic: Yes Psychiatric: Yes Reproductive: No Respiratory: Yes Migraines: Yes Sleep Apnea: No Thyroid Disease: No Ulcer: No Tetanus Vaccination: Unknown Influenza Vaccination: No ?: Not Menopausal: Yes Past Surgical History Abdominal Surgery: No Cardiac Surgery: No Ear Surgery: No Endocrine Surgery: No Eye Surgery: No Genitourinary Surgery: No Gynecologic Surgery: No Oral Surgery: No Thoracic Surgery: No Tonsillectomy: Yes Other Surgery: Yes Social History Alcohol Use: No Tobacco Use: Yes (1/2-1PPD) Substance Use: No Allergies-Medications (Allergen,Severity, Reaction): Coded Allergies: penicillin G (Verified Allergy, Mild, 10/06/17) Reported Meds & Prescriptions Reported Meds & Active Scripts Active Prednisone 10 Mg Tab 10 Mg PO BID 5 Days [Nystatin Powder] 15 APPLIC/15 GM Powd 1 Applic TOPICAL Q8HR 10 Days Klonopin (Clonazepam) 0.5 Mg Tab 0.5 Mg PO Q8HR PRN Oxycodone-Acetaminophen 5-325 (Oxycodone HCl/Acetaminophen) 5 Mg-325 Mg Tablet 1 Tab PO Q6H PRN Reported Captopril 25 Mg Tab 25 Mg PO TIDAC Take 1 hr before meals. Anoro Ellipta Inh (Umeclidinium/Vilanterol) 62.5-25 Mcg/Act Aero 1 Puff INH DAILY Tylenol (Acetaminophen) 325 Mg Tab 325 Mg PO Q6H PRN Triamterene-Hydrochlorothiazide 37.5-25 Mg Tab 1 Tab PO DAILY Proair Hfa 8.5 GM Inh (Albuterol Sulfate) 90 Mcg/Act Aer 2 Puff INH Q6H PRN 108 mcg/actuation Duoneb (Ipratropium-Albuterol Neb) 0.5-2.5 Mg/3 Ml Neb 3 Ml NEB QID Anoro Ellipta Inh (Umeclidinium/Vilanterol) 62.5-25 Mcg/Act Aero 1 Puff INH DAILY Review of Systems Except as stated in HPI: all other systems reviewed are Neg Physical Exam Narrative GENERAL: pain free awake alert no distress at this time of initial exam SKIN: Warm and dry. HEAD: Atraumatic. Normocephalic. EYES: Pupils equal and round. No scleral icterus. No injection or drainage. ENT: No nasal bleeding or discharge. Mucous membranes pink and moist. NECK: Trachea midline. No JVD. CARDIOVASCULAR: Regular rate and rhythm. RESPIRATORY: No accessory muscle use. Clear to auscultation. Breath sounds equal bilaterally. GASTROINTESTINAL: Abdomen soft, non-tender, nondistended. Hepatic and splenic margins not palpable. MUSCULOSKELETAL: Extremities without clubbing, cyanosis, or edema. No obvious deformities. NEUROLOGICAL: Awake and alert. No obvious cranial nerve deficits. Motor grossly within normal limits. Five out of 5 muscle strength in the arms and legs. Normal speech. PSYCHIATRIC: Appropriate mood and affect; insight and judgment normal. Data Data Last Documented VS Vital Signs Date Time Temp Pulse Resp B/P (MAP) Pulse Ox O2 Delivery O2 Flow Rate FiO2 10/06/17 03:14 98 Nasal Cannula 2.00 10/06/17 02:45 98.1 113 18 137/84 (101) Orders Orders Electrocardiogram (10/06/17 03:01) Ckmb (Isoenzyme) Profile (10/06/17 03:01) Complete Blood Count With Diff (10/06/17 03:01) Comprehensive Metabolic Panel (10/06/17 03:01) Magnesium (Mg) (10/06/17 03:01) Troponin I (10/06/17 03:01) Lipase (10/06/17 03:01) Chest, Single Ap (10/06/17 03:01) Ecg Monitoring (10/06/17 03:01) Bilateral Bp Monitoring (10/06/17 03:01) Oxygen Administration (10/06/17 03:01) Sodium Chlorid 0.9% 500 Ml Inj (Ns 500 M (10/06/17 04:15) Admit Order (Ed Use Only) (10/06/17 04:39) Place In Observation (10/06/17 04:41) Activity Bed Rest With Brp (10/06/17 04:41) Vital Signs (Adult) Q4H (10/06/17 04:41) Cardiac Rhythm .As Directed (10/06/17 04:41) Notify Dr: Other .PRN (10/06/17 04:41) Notify DrJuliette Parameters (10/06/17 04:41) Resp Oxygen Nasal Cannula (10/06/17 ) Ckmb (Isoenzyme) Profile (10/06/17 04:41) Ckmb (Isoenzyme) Profile (10/06/17 07:41) Troponin I (10/06/17 04:41) Troponin I (10/06/17 07:41) Electrocardiogram (10/06/17 04:41) Electrocardiogram (10/06/17 07:41) ^ Obtain (10/06/17 04:41) Sodium Chloride 0.9% Flush (Ns Flush) (10/06/17 04:45) Sodium Chloride 0.9% Flush (Ns Flush) (10/06/17 09:00) Marketing Manager / Telemetry VERONA.Q8H (10/06/17 04:41) Labs Laboratory Tests Test 10/06/17 03:19 White Blood Count 12.8 TH/MM3 Red Blood Count 5.70 MIL/MM3 Hemoglobin 17.3 GM/DL Hematocrit 53.3 % Mean Corpuscular Volume 93.5 FL Mean Corpuscular Hemoglobin 30.4 PG Mean Corpuscular Hemoglobin Concent 32.5 % Red Cell Distribution Width 14.8 % Platelet Count 168 TH/MM3 Mean Platelet Volume 10.6 FL Neutrophils (%) (Auto) 75.5 % Lymphocytes (%) (Auto) 8.0 % Monocytes (%) (Auto) 13.9 % Eosinophils (%) (Auto) 2.3 % Basophils (%) (Auto) 0.3 % Neutrophils # (Auto) 9.7 TH/MM3 Lymphocytes # (Auto) 1.0 TH/MM3 Monocytes # (Auto) 1.8 TH/MM3 Eosinophils # (Auto) 0.3 TH/MM3 Basophils # (Auto) 0.0 TH/MM3 CBC Comment AUTO DIFF Differential Comment AUTO DIFF CONFIRMED Blood Urea Nitrogen 25 MG/DL Creatinine 0.94 MG/DL Random Glucose 104 MG/DL Total Protein 6.7 GM/DL Albumin 3.3 GM/DL Calcium Level 9.2 MG/DL Magnesium Level 1.8 MG/DL Alkaline Phosphatase 117 U/L Aspartate Amino Transf (AST/SGOT) 100 U/L Alanine Aminotransferase (ALT/SGPT) 137 U/L Total Bilirubin 0.5 MG/DL Sodium Level 134 MEQ/L Potassium Level 4.4 MEQ/L Chloride Level 92 MEQ/L Carbon Dioxide Level 35.3 MEQ/L Anion Gap 7 MEQ/L Estimat Glomerular Filtration Rate 59 ML/MIN Total Creatine Kinase 27 U/L Troponin I LESS THAN 0.02 NG/ML Lipase 277 U/L Lalo Gonzalez MD Oct 06, 2017 03:01
[2017-10-06 03:14] VITALS: O2SAT 98
[2017-10-06 03:29] LABS: AUTOMATED NEUTROPHIL # 9.7 TH/MM3 (1.8-7.7); BASOPHIL % 0.3 % (0.0-2.0); EOSINOPHIL # 0.3 TH/MM3 (0-0.4); EOSINOPHIL % 2.3 % (0.0-4.0); HEMATOCRIT 53.3 % (35.0-46.0); HEMOGLOBIN 17.3 GM/DL (11.6-15.3); MEAN CELL VOLUME 93.5 FL (80.0-100.0); MEAN CORPUSCULAR HEMOGLOBIN 30.4 PG (27.0-34.0); MEAN CORPUSCULAR HGB CONC 32.5 % (32.0-36.0); MEAN PLATELET VOLUME 10.6 FL (7.0-11.0); MONO % 13.9 % (0.0-8.0); MONOCYTE # 1.8 TH/MM3 (0-0.9); NEUT % 75.5 % (16.0-70.0); PLATELET COUNT 168 TH/MM3 (150-450); RED CELL DISTRIBUTION WIDTH 14.8 % (11.6-17.2); WHITE BLOOD COUNT 12.8 TH/MM3 (4.0-11.0)
[2017-10-06 03:51] LABS: ALKALINE PHOSPHATASE 117 U/L (45-117); ALT (GPT) 137 U/L (10-53); TOTAL BILIRUBIN ADULT 0.5 MG/DL (0.2-1.0); TOTAL PROTEIN 6.7 GM/DL (6.4-8.2); TROPONIN I LESS THAN 0.02 NG/ML (0.02-0.05)
[2017-10-06 03:57] LABS: ALBUMIN 3.3 GM/DL (3.4-5.0); AST (GOT) 100 U/L (15-37); BICARBONATE 35.3 MEQ/L (21.0-32.0); BLOOD UREA NITROGEN 25 MG/DL (7-18); CALCIUM 9.2 MG/DL (8.5-10.1); CHLORIDE 92 MEQ/L (98-107); CREATININE 0.94 MG/DL (0.50-1.00); GLOMERULAR FILTRATION RATE 59 ML/MIN (>89); GLUCOSE,RANDOM 104 MG/DL (74-106); MAGNESIUM 1.8 MG/DL (1.5-2.5); SODIUM (NA) 134 MEQ/L (136-145)
[2017-10-06] MEDS ORDERED: SODIUM CHLORID 0.9% 500 ML INJ 500 ML IV ONE (04:15)
--- NOTE | 2017-10-06 04:29 | RADRPT ---
EXAM DATE: 10/06/2017 3:49 AM EDT AGE/SEX: 72 years / Female INDICATIONS: Chest pain. CLINICAL DATA: This is the patient's initial encounter. Patient reports that signs and symptoms have been present for 1 day and indicates a pain score of 5/10. MEDICAL/SURGICAL HISTORY: None. None. COMPARISON: [facility] [place], CHEST SINGLE AP, 09/26/2017. . FINDINGS: A single AP view of the chest demonstrates the lungs to be symmetrically aerated without evidence of mass, infiltrate or effusion. The cardiomediastinal contours are unremarkable. Osseous structures a re intact. CONCLUSION: No acute cardiopulmonary process. Electronically signed by: Caden Rodriguez MD 10/06/2017 4:28 AM EDT
[2017-10-06] MEDS ORDERED: SODIUM CHLORIDE 0.9% FLUSH 10 ML FLUSH IV FLUSH PRN (04:45)
[2017-10-06 05:24] VITALS: BP 102/63; PULSE 78; RESP 18; O2SAT 98
[2017-10-06] MEDS ORDERED: ASPIRIN 81 MG CHEW TAB CHEW ONE (05:30)
[2017-10-06 06:50] VITALS: PULSE 83
[2017-10-06 07:10] LABS: TROPONIN I LESS THAN 0.02 NG/ML (0.02-0.05)
--- NOTE | 2017-10-06 07:44 | HHI.HP ---
HPI Primary Care Physician Jona Becerra D.O. Chief Complaint Chest pain History of Present Illness 72-year-old female with history of COPD, oxygen dependent 2L/NC, and recently discharged 10/02/17 with COPD exacerbation presents emergency room for further evaluation of sudden onset of chest pain. Onset "sometime in the middle the night." Unable to give accurate time. Location substernal. Characterized "someone ripping out my heart." No radiation of pain. Associated symptoms included nausea and diaphoresis. Denied vomiting or dyspnea. No known precipitating factors. Relieving factors aspirin and Klonopin, states "pain went away as soon as I took medication." No particular movement or position made pain better or worse. Denies similar pain in the past. No further chest pain episodes overnight. Review of Systems General: No fatigue, weakness, fever, or chills. Recently discharged 10/02/17 COPD exacerbation, unsure if she is still taking steroid or antibiotics. Currently in rehab facility with plans to return home were she lives independently. States feeling well since discharge. HEENT: No BOOGIE, no vision changes, no nasal congestion or drainage, no dysphasia, no history of GERD CV: As stated above. No further chest pain episodes. No current chest pain or pressure. RESP: COPD, oxygen dependent, exertional dyspnea unchanged from baseline, nonproductive cough. Productive cough and wheezing improved since admission. GI: No nausea, vomiting, or bowel changes. : No dysuria, urgency, or frequency. EXT: Intermittent bilateral lower leg edema, no paraesthesias, no claudication MS: No discomfort, injury, recent trauma, or change in ROM. Requires walker or wheelchair. NEURO: No change in memory, dizziness, LOC, motor/sensory deficits PSYCH: History of anxiety, No depression or suicidal ideation SKIN: No rashes, no concerning lesions Past Family Social History Allergies: Coded Allergies: penicillin G (Verified Allergy, Mild, 10/06/17) Past Medical History Oxygen dependent, COPD, hypertension, migraines, anxiety Past Surgical History Tonsillectomy Reported Medications Reported Meds & Active Scripts Active Prednisone 10 Mg Tab 10 Mg PO BID 5 Days [Nystatin Powder] 15 APPLIC/15 GM Powd 1 Applic TOPICAL Q8HR 10 Days Klonopin (Clonazepam) 0.5 Mg Tab 0.5 Mg PO Q8HR PRN Oxycodone-Acetaminophen 5-325 (Oxycodone HCl/Acetaminophen) 5 Mg-325 Mg Tablet 1 Tab PO Q6H PRN Captopril 25 Mg Tab 25 Mg PO TIDAC Take 1 hr before meals. Anoro Ellipta Inh (Umeclidinium/Vilanterol) 62.5-25 Mcg/Act Aero 1 Puff INH DAILY Tylenol (Acetaminophen) 325 Mg Tab 325 Mg PO Q6H PRN Triamterene-Hydrochlorothiazide 37.5-25 Mg Tab 1 Tab PO DAILY Proair Hfa 8.5 GM Inh (Albuterol Sulfate) 90 Mcg/Act Aer 2 Puff INH Q6H PRN 108 mcg/actuation Duoneb (Ipratropium-Albuterol Neb) 0.5-2.5 Mg/3 Ml Neb 3 Ml NEB QID Anoro Ellipta Inh (Umeclidinium/Vilanterol) 62.5-25 Mcg/Act Aero 1 Puff INH DAILY Active Ordered Medications Current Medications Medications (Trade) Dose Ordered Sig/Michael Route Start Time Stop Time Status Last Admin (NS Flush) 2 ml UNSCH PRN IV FLUSH 10/06/17 04:45 (NS Flush) 2 ml BID IV FLUSH 10/06/17 09:00 Family History Positive for early onset cardiovascular disease. Father first MD at age 43. Social History Known hypertension. No known hyperlipidemia, diabetes, or coronary artery disease. Lifelong smoker of 61 years. Reporting most years smoked 2 packs/daily. Quit smoking 12 days. Recovering alcoholic for 12 years. Single. Lives independently. Requires walker or wheelchair. Currently in rehab facility, plans to return home. Past cardiac testing Denies ever having any cardiac testing or cardiac catheterization. Physical Exam Vital Signs Vital Signs Date Time Temp Pulse Resp B/P (MAP) Pulse Ox O2 Delivery O2 Flow Rate FiO2 10/06/17 05:24 78 18 102/63 (76) 98 Nasal Cannula 2.50 10/06/17 03:14 98 Nasal Cannula 2.00 10/06/17 03:14 98 Nasal Cannula 2.00 10/06/17 02:45 98.1 113 18 137/84 (101) 95 Physical Exam GENERAL: Alert WN, WD, NAD, pleasant, elderly female HEAD: NC, AT NECK: Supple, no masses, trachea midline CV: RRR, without murmur, rub, gallop, no JVD, S1-S2 no S3-S4. Chest wall nontender with palpation. RESP: Diminished lungs throughout bilateral, no crackles, wheeze, rhonchi, symmetrical chest rise, nonlabored, able to speak in full sentences ABD: Soft, NT, ND, no masses, positive bowel tones EXT: Pulses +1x4, emmett discoloration bilateral lower extremities, no dependent edema MS: Normal tone x4 extremities, nontender, no obvious deformities, full range of motion NEURO: CN II through CN XII grossly intact, motor strength 5/5 PSYCH: A+O x3, pleasant affect, appropriate speech, mood, insight and judgment SKIN: Normal turgor, normal texture, no lesions, no rashes Laboratory Laboratory Tests Test 10/06/17 03:19 10/06/17 06:25 White Blood Count 12.8 Red Blood Count 5.70 Hemoglobin 17.3 Hematocrit 53.3 Mean Corpuscular Volume 93.5 Mean Corpuscular Hemoglobin 30.4 Mean Corpuscular Hemoglobin Concent 32.5 Red Cell Distribution Width 14.8 Platelet Count 168 Mean Platelet Volume 10.6 Neutrophils (%) (Auto) 75.5 Lymphocytes (%) (Auto) 8.0 Monocytes (%) (Auto) 13.9 Eosinophils (%) (Auto) 2.3 Basophils (%) (Auto) 0.3 Neutrophils # (Auto) 9.7 Lymphocytes # (Auto) 1.0 Monocytes # (Auto) 1.8 Eosinophils # (Auto) 0.3 Basophils # (Auto) 0.0 CBC Comment AUTO DIFF Differential Comment AUTO DIFF CONFIRMED Blood Urea Nitrogen 25 Creatinine 0.94 Random Glucose 104 Total Protein 6.7 Albumin 3.3 Calcium Level 9.2 Magnesium Level 1.8 Alkaline Phosphatase 117 Aspartate Amino Transf (AST/SGOT) 100 Alanine Aminotransferase (ALT/SGPT) 137 Total Bilirubin 0.5 Sodium Level 134 Potassium Level 4.4 Chloride Level 92 Carbon Dioxide Level 35.3 Anion Gap 7 Estimat Glomerular Filtration Rate 59 Total Creatine Kinase 27 33 Troponin I LESS THAN 0.02 LESS THAN 0.02 Lipase 277 Result Diagram: 10/06/1731810/06/17 031 Imaging Last 48 hours Impressions Chest X-Ray 10/06/17 0301 Signed Impressions: CONCLUSION: No acute cardiopulmonary process. Course EKG NSR, normal axis, early repolarization Caprini VTE Risk Assessment Caprini VTE Risk Assessment: Mod/High Risk (score >= 2) Caprini Risk Assessment Model Point Value = 1 Point Value = 2 Point Value = 3 Point Value = 5 Age 41-60 Minor surgery BMI > 25 kg/m2 Swollen legs Varicose veins or History of unexplained or recurrent spontaneous Oral contraceptives or hormone replacement Sepsis (< 1 month) Serious lung disease, including pneumonia (< 1 month) Abnormal pulmonary function Acute myocardial infarction Congestive heart failure (< 1 month) History of inflammatory bowel disease Medical patient at bed rest Age 61-74 Arthroscopic surgery Major open surgery (> 45 min) Laparoscopic surgery (> 45 min) Malignancy Confined to bed (> 72 hours) Immobilizing plaster cast Central venous access Age >= 75 History of VTE Family history of VTE Factor V Leiden Prothrombin [id number] Lupus anticoagulant Anticardiolipin antibodies Elevated serum homocysteine Heparin-induced thrombocytopenia Other congenital or acquired thrombophilia Stroke (< 1 month) Elective arthroplasty Hip, pelvis, or leg fracture Acute spinal cord injury (< 1 month) Prophylaxis Regimen Total Risk Factor Score Risk Level Prophylaxis Regimen 0-1 Low Early ambulation 2 Moderate Order ONE of the following: *Sequential Compression Device (SCD) *Heparin 5000 units SQ BID 3-4 Higher Order ONE of the following medications: *Heparin 5000 units SQ TID *Enoxaparin/Lovenox 40 mg SQ daily (WT < 150 kg, CrCl > 30 mL/min) *Enoxaparin/Lovenox 30 mg SQ daily (WT < 150 kg, CrCl > 10-29 mL/min) *Enoxaparin/Lovenox 30 mg SQ BID (WT < 150 kg, CrCl > 30 mL/min) AND/OR *Sequential Compression Device (SCD) 5 or more Highest Order ONE of the following medications: *Heparin 5000 units SQ TID (Preferred with Epidurals) *Enoxaparin/Lovenox 40 mg SQ daily (WT < 150 kg, CrCl > 30 mL/min) *Enoxaparin/Lovenox 30 mg SQ daily (WT < 150 kg, CrCl > 10-29 mL/min) *Enoxaparin/Lovenox 30 mg SQ BID (WT < 150 kg, CrCl > 30 mL/min) AND *Sequential Compression Device (SCD) Assessment and Plan Assessment and Plan #1 Chest pain-admit to chest pain center. Rule out with 3 sets of EKGs and cardiac enzymes. Monitor on telemetry. Will be seen and evaluated by Dr. Power. Discussed possible chemical cardiac testing later this morning, this will be determined after evaluation by director strategic planning. Patient agreeable to plan of care and verbalizes understanding. #2 History of COPD-recently treated for COPD exacerbation with antibiotics, continue inhalers, albuterol q2h prn, continue last day of Prednisone therapy #3 History of hypertension-continue triamterene-hydrochlorothiazide, captopril #4 Tobacco use-encouraged stress importance of tobacco cessation. Instructed to remain smoke free and praised her efforts in recent success of 12 days of not smoking. #5 History of anxiety-continue Jada Sánchez Oct 06, 2017 07:44
[2017-10-06 08:38] VITALS: BP 120/76; PULSE 96; RESP 20; TEMP 98.2; O2SAT 96
[2017-10-06] MEDS ORDERED: clonazePAM 0.5 MG TAB PO PRN (08:45)
[2017-10-06] MEDS ORDERED: RESP: ALBUTEROL 2.5 MG/3 ML NEB (PRN) NEB (08:45)
[2017-10-06] MEDS ORDERED: predniSONE 10 MG TAB PO SCH (09:00)
[2017-10-06] MEDS ORDERED: UMECLIDINIUM 62.5 MCG/VILANTEROL 25 MCG INHALER INH SCH (09:00)
[2017-10-06] MEDS ORDERED: TRIAMTERENE/HCTZ 37.5 MG/25 MG TAB PO SCH (09:00)
[2017-10-06] MEDS ORDERED: SODIUM CHLORIDE 0.9% FLUSH 10 ML FLUSH IV FLUSH SCH (09:00)
[2017-10-06] MEDS ORDERED: ACETAMINOPHEN 500 MG CPLT PO PRN (09:15)
[2017-10-06] MEDS ORDERED: NITROGLYCERIN 0.4 MG SL 25 TABS/BTL SL PRN (09:15)
[2017-10-06] MEDS ORDERED: ONDANSETRON ODT 4 MG TAB PO PRN (09:15)
[2017-10-06 10:01] LABS: TROPONIN I LESS THAN 0.02 NG/ML (0.02-0.05)
--- NOTE | 2017-10-06 10:36 | EKG ---
Date Performed: 10/06/2017 Time Performed: 05:51:35 PTAGE: 72 years EKG: Sinus rhythm EARLY REPOLARIZATION BORDERLINE ECG PREVIOUS TRACING : 09/26/2017 14.51 No significant change from previous tracing noted. DOCTOR: Gary Hayes Interpretating Date/Time 10/06/2017 10:36:10
--- NOTE | 2017-10-06 10:40 | EKG ---
Date Performed: 10/06/2017 Time Performed: 01:47:12 PTAGE: 72 years EKG: SINUS TACHYCARDIA EARLY REPOLARIZATION ABNORMAL RHYTHM ECG NO PREVIOUS TRACING DOCTOR: Gary Hayes Interpretating Date/Time 10/06/2017 10:38:06
[2017-10-06] MEDS ORDERED: CAPTOPRIL 25 MG TAB PO SCH (12:00)
[2017-10-06] MEDS ORDERED: REGADENOSON INJ 0.4 MG/5 ML SYR ONE (13:00)
--- NOTE | 2017-10-06 14:23 | RADRPT ---
EXAM DATE: 10/06/2017 2:16 PM EDT AGE/SEX: 72 years / Female INDICATIONS:Angina. Congestive heart failure Substernal chest pain. CLINICAL DATA: This is the patient's initial encounter. Patient reports that signs and symptoms have been present for 1 day and indicates a pain score of 3/10. MEDICAL/SURGICAL HISTORY: Hypertension. Chronic obstructive pulmonary disease. . Bilateral tesha t surgery. COMPARISON: No prior exams available for comparison. No external comparison. DOSE: 26.9 mCi Tc 99m Myoview at stress 8.7 mCi [id number] at rest 0.4 mg Lexiscan STRESS SYMPTOMS: Headache. EJECTION FRACTION: 70 % TECHNIQUE: The patient underwent pharmacologic stress with infusion of prescribed dose. Continuous ECG tracing was monitored during stress. Gated SPECT imaging was performed after stress and conventi onal SPECT imaging was performed at rest. The examination was performed on a SPECT/CT scanner, both attenuation and non-corrected datasets were reviewed. FINDINGS: Distribution: The maximum perfused segment at stress is in the anterolateral wall. Perfusion Study: There is a small area of 10% redistribution involving the inferior wall approachin g the apex. No significant reversible defects observed.. Gated Study: There are intact wall motion and wall thickening without hypokinetic or dyskinetic segm ents. The ejection fraction is calculated at 70%. RISK CATEGORY: Low (<1% Annual Motality Rate) CONCLUSION: 1. No significant reversible defects observed to suggest acute ischemia. Electronically signed by: Nabil Newberry MD 10/06/2017 2:22 PM EDT
--- NOTE | 2017-10-06 14:59 | HHI.DCPOC ---
Discharge Care Plan Diagnosis: (1) Atypical chest pain (2) Tobacco abuse Goals to Promote Your Health * To prevent worsening of your condition and complications * To maintain your health at the optimal level Directions to Meet Your Goals Take your medications as prescribed Follow your dietary instruction Follow activity as directed Keep your appointments as scheduled Take your immunizations and boosters as scheduled If your symptoms worsen call your PCP, if no PCP go to Urgent Care Center or Emergency Room Smoking is Dangerous to Your Health. Avoid second hand smoke Call the 24-hour hour crisis hotline for domestic abuse at Jada Wang Oct 06, 2017 14:59
[2017-10-06 15:26] VITALS: BP 106/61; PULSE 98; RESP 18; TEMP 98; O2SAT 97
--- NOTE | 2017-10-06 16:16 | EKG ---
Date Performed: 10/06/2017 Time Performed: 09:47:54 PTAGE: 72 years EKG: Sinus rhythm ST ELEVATION, PROBABLY EARLY REPOLARIZATION BORDERLINE ECG PREVIOUS TRACING : 10/06/2017 05.51 No significant change from previous tracing noted. DOCTOR: Gary Hayes Interpretating Date/Time 10/06/2017 16:15:11
--- NOTE | 2017-10-06 18:12 | TR ---
Date Performed: 10/06/2017 Time Performed: 13:04:41 DOCTOR: Disha Power DRUG LIST: CLINICAL HISTORY: REASON FOR TEST: REASON FOR ENDING: OBSERVATION: CONCLUSION: Lexiscan stress test was performed under standard four minute protocol. Radionuclid e was injected one minute prior to ending the test. No electrocardiographic abormalities were present to suggest ischemia. Nuclear imaging and interpretation are pending. COMMENTS: no ischemia
[2017-10-07] MEDS ORDERED: ASPIRIN 325 MG TAB PO SCH (09:00)
== END 2017-10-06 17:00 ==
LOC: NEPE 02:31 → NEDA 04:41 → NEPFCDU 05:29
PROVIDERS: ADMIT Internal Medicine Interventional Cardiology; ATTEND Internal Medicine Interventional Cardiology
DX: R07.9 Chest pain, unspecified (principal); J44.9 Chronic obstructive pulmonary disease, unspecified; F41.9 Anxiety disorder, unspecified; F17.200 Nicotine dependence, unspecified, uncomplicated; F32.9 Major depressive disorder, single episode, unspecified; E78.00 Pure hypercholesterolemia, unspecified; K21.9 Gastro-esophageal reflux disease without esophagitis; Z79.899 Other long term (current) drug therapy; Z99.81 Dependence on supplemental oxygen; Z82.49 Family history of ischemic heart disease and other diseases of the circulatory system; F10.21 Alcohol dependence, in remission; R94.31 Abnormal electrocardiogram [ECG] [EKG]; I10 Essential (primary) hypertension
CPT/HCPCS: 71045; 78452; 80053; 82550; 83690; 83735; 84484; 85025; 93005; 93017; 96360; 99285; A9502; G0378; J2785; J7040; J7512